=== PATIENT | male | born 1950 | race African-American/Black ===

== ENCOUNTER 2019-08-14 14:14 | Inpatient (IN) | payer OTHER ==
[2019-08-14] MEDS ORDERED: ASPIRIN 81 MG CHEWABLE TABLETS PO ONE (14:58)
[2019-08-14] MEDS ORDERED: ACETAMINOPHEN 500 MG TABLET (FP) PO ONE (14:59)
[2019-08-14] MEDS ORDERED: ACETAMINOPHEN 325 MG TABLET (FP) ONE (15:03)
[2019-08-14] MEDS ORDERED: ASPIRIN 81 MG CHEWABLE TABLETS ONE (15:04)
--- NOTE | 2019-08-14 15:06 | PDOC ---
History of Present Illness - General Chief Complaint: Chest Pain Stated Complaint: CHEST TIGHTNESS Time Seen by Provider: 08/14/19 14:28 - History of Present Illness Initial Comments: 08/14/19 15:06 HPI: 69 y/o M with hx of DM, HTN, HLD presenting with acute onset chest pain that started about 1.5hrs prior to presentation. Patient was lying in bed watching TV when he felt left chest sharp tightness that was nonradiating. Pain was strong for 1minute then dulled. He was able to ambulate to the bathroom following pain and denied any exertional pain. He did not take any meds today. He also reports GREENFIELD for the past 1week with fatigue. He denies any fever, chills, LH, [place], n/v, diaphoresis, change in vision, joint pain, dysuria. He also reports former smoking history PMHx: as noted above ROS: as noted SHx: +former tobacco use; occ alcohol use; no rec drugs Allergies: NKDA ROS: GENERAL/CONSTITUTIONAL: No fever or chills. +gen weakness. HEAD, EYES, EARS, NOSE AND THROAT: No change in vision. No ear pain or discharge. No sore throat. CARDIOVASCULAR: +chest pain and shortness of breath RESPIRATORY: No cough, wheezing, or hemoptysis. GASTROINTESTINAL: No nausea, vomiting, diarrhea or constipation. GENITOURINARY: No dysuria, frequency, or change in urination. MUSCULOSKELETAL: No joint or muscle swelling or pain. No neck or back pain. SKIN: No rash NEUROLOGIC: No headache, vertigo, loss of consciousness, or change in strength/sensation. ENDOCRINE: No increased thirst. No abnormal weight change HEMATOLOGIC/LYMPHATIC: No anemia, easy bleeding, or history of blood clots. ALLERGIC/IMMUNOLOGIC: No hives or skin allergy. PE: GENERAL: Awake, alert, and fully oriented, no acute distress HEAD: No signs of trauma, normocephalic, atraumatic EYES: EOMI, sclera anicteric, conjunctiva clear ENT: Auricles normal inspection, hearing grossly normal, nares patent, oropharynx clear without exudates. Moist mucosa NECK: Normal ROM, no lymphadenopathy LUNGS: No increased work of breathing, symmetrical chest rise, clear to auscultation bilaterally, no wheezes, crackles or rhonchi HEART: tachycardia, regular rhythm, normal S1 and S2, no murmur, peripheral pulses 2+ and equal bilaterally. ABDOMEN: Soft, nondistended, nontender. No guarding, no rebound. No masses. No CVAT MUSCULOSKELETAL: FROM; left hand s/p 3rd digit amputation with skin graft; right foot with 5th metatarsal amputation. NEUROLOGICAL: Cranial nerves II through XII grossly intact. Normal speech, stable gait, no focal sensorimotor deficits SKIN: Warm, Dry, normal turgor, no rashes or lesions noted Past History - Medical History Allergies/Adverse Reactions: Allergies Allergy/AdvReac Type Severity Reaction Status Date / Time No Known Allergies Allergy Verified 03/16/15 19:25 Home Medications: Ambulatory Orders Atorvastatin Calcium 40 mg PO HS 08/14/19 Iron 0 mg PO DAILY 08/14/19 Lisinopril/Hydrochlorothiazide [Lisinopril-Hctz 20-25 mg Tab] 1 each PO DAILY 08/14/19 Multivitamin [Multiple Vitamins] 1 each PO DAILY 08/14/19 Pioglitazone HCl/Metformin HCl [Actoplus Met 15 mg-850 mg Tab] 1 each PO BID 08/14/19 Sitagliptin Phosphate [Januvia] 100 mg PO DAILY 08/14/19 COPD: No Diabetes: Yes - Psycho-Social/Smoking History Smoking History: Former smoker Have you smoked in the past 12 months: No If you are a former smoker, when did you quit?: 6 years ago Information on smoking cessation initiated: No - Substance Abuse Hx (Audit-C & DAST Scrn) How often the patient has a drink containing alcohol: Monthly or less Score: In Men: 4 or > Positive; In Women: 3 or > Positive: 1 Screen Result (Pos requires Nsg. Audit-10AR): Negative *Physical Exam - Vital Signs Last Vital Signs Temp Pulse Resp BP Pulse Ox 98.6 F 77 20 109/62 100 08/14/19 14:20 08/14/19 14:20 08/14/19 14:20 08/14/19 14:20 08/14/19 14:20 Heart Score/ECG Review - History History: Moderately suspicious - Electrocardiogram EKG: Normal - Age Age: >/= 65 - Risk Factors Risk Factors Heart Score: Yes Hx Hypercholesterolemia, Yes Hx Hypertension, Yes Hx Diabetes, Yes Smoking History Based on the list above the patient has:: >/=3 risk factors or Hx atherosclerotic disease - Troponin Troponin: </= normal limit - Score Heart Score - Total: 5 ED Treatment Course - LABORATORY CBC & Chemistry Diagram: 08/14/19 14:59 08/14/19 14:59 - RADIOLOGY Radiology Studies Ordered: Category Date Time Status CXRPORT [CHEST X-RAY PORTABLE*] [RAD] Stat Radiology 08/14/19 14:48 Ordered Medical Decision Making - Medical Decision Making 08/14/19 16:30 69 y/o M with hx of DM, HTN, HLD presenting with acute onset nonexertional chest tightness that started about 1.5hrs prior to presentation in the setting of GREENFIELD and fatigue x1week. HR 102, AF, O2 100%. PE unremarkable. DDx includes ACS, arrythmia, pna -cbc, cmp, coags, card prof, ekg, cxr -ASA, tylenol 08/14/19 16:34 Cr 2.5 will send ua, ucr, cara ivf HEART score 5 will admit for fawad and acs r/o 08/14/19 16:37 bmp hemolyzed; will rpt and send 2nd trop Discharge - Discharge Information Problems reviewed: Yes Clinical Impression/Diagnosis: FAWAD (acute kidney injury), Chest pain, GREENFIELD (dyspnea on exertion) Condition: Stable - Admission Yes - Follow up/Referral Referrals: Elia Veronica MD [Primary Care Provider] - - Patient Discharge Instructions - Post Discharge Activity
[2019-08-14 15:11] LABS: BASO % 0.8 % (0-2.0); EOS % 1.5 % (0-4.5); HEMATOCRIT 39.6 % (35.4-49); HEMOGLOBIN 12.8 GM/dL (11.7-16.9); LYMPH % 22.7 % (8-40); MCH 32.4 pg (25.7-33.7); MCHC 32.2 g/dl (32.0-35.9); MEAN CELL VOLUME 100.5 fl (80-96); MEAN PLT VOLUME 8.3 fl (7.5-11.1); MONO % 7.4 % (3.8-10.2); NEUT % 67.6 % (42.8-82.8); PLATELET COUNT 256 K/MM3 (134-434); RBC 3.94 M/mm3 (4.00-5.60); RDW 13.4 % (11.9-15.9); WHITE BLOOD COUNT 6.7 K/mm3 (4.0-10.0)
[2019-08-14 15:20] LABS: INR 0.95 (0.83-1.09); PROTHROMBIN TIME (PATIENT) 11.2 SEC (9.7-13.0)
[2019-08-14 15:22] LABS: ACTIVATED PTT 27.9 SECONDS (25.2-36.5)
[2019-08-14 15:32] LABS: ALBUMIN 3.9 g/dl (3.4-5.0); ALK PHOS 79 U/L (45-117); ANION GAP 10 MMOL/L (8-16); BILIRUBIN,TOTAL 0.6 mg/dL (0.2-1); BLOOD UREA NITROGEN 34.7 mg/dL (7-18); CALCIUM 9.1 mg/dL (8.5-10.1); CHLORIDE 105 mmol/L (98-107); CO2 18 mmol/L (21-32); CREATININE 2.5 mg/dL (0.55-1.3); GLUCOSE,RANDOM 144 mg/dL (74-106); MAGNESIUM 2.4 mg/dL (1.8-2.4); PHOSPHOROUS 4.2 mg/dL (2.5-4.9); POTASSIUM 5.8 mmol/L (3.5-5.1); SGOT/AST 36 U/L (15-37); SGPT/ALT 26 U/L (13-61); SODIUM 134 mmol/L (136-145); TOT PROT 7.2 g/dl (6.4-8.2)
--- NOTE | 2019-08-14 15:33 | PDOC ---
Attending Attestation - Resident Resident Name: Jace Haas - ED Attending Attestation I have performed the following: I have examined & evaluated the patient, The case was reviewed & discussed with the resident, I agree w/resident's findings & plan - HPI HPI: 08/14/19 17:56 69 y/o M with hx of DM, HTN, HLD presenting with acute onset chest pain that started about 1.5hrs prior to presentation. Patient was lying in bed watching TV when he felt left chest sharp tightness that was nonradiating. Pain was strong for 1minute then dulled. He was able to ambulate to the bathroom following pain and denied any exertional pain. He did not take any meds today. He also reports [place] for the past 1week with fatigue. He denies any fever, chills, LH, [place], n/v, diaphoresis, change in vision, joint pain, dysuria. He also reports former smoking history - Physicial Exam PE: 08/14/19 15:32 Agree with the resident's HPI and PE as documented in the electronic medical record. NAD, well appearing, EOMI, PERRL, nl conjunctiva, anicteric; neck supple. lungs clear, RRR, abdomen soft nontender. No rebound, no guarding. Back nontender. WILSON x4, no focal neuro deficits. No peripheral edema. normal color for ethnicity, WWP. partial amputation healed over left great toe right pinky toe amputation, well healed left hand dorsal aspect with healed graft. middle finger amputated, healed. 08/14/19 16:20 - Medical Decision Making 08/14/19 15:32 Vital Signs Temp Pulse Resp BP Pulse Ox 98.6 F 77 20 109/62 100 08/14/19 14:20 08/14/19 14:20 08/14/19 14:20 08/14/19 14:20 08/14/19 14:20 DDx chest pain: ACS, coronary vasospasm, NSTEMI, arrhythmia, unstable angina, PE, dissection, PUD, esophageal spasm, GERD, gastritis, costochondritis, pneum onia, pleurisy, pericarditis/myocarditis. dehydration, electrolyte/metabolic derangements. Considered but clinically doubt based on HPI and PE: Low suspicion for pulmonary embolism or dissection. sinus tachycardia at 107 bpm, normal intervals, narrow qrs, normal axis, no ST elevations or deviation. Chest pain HEART score 5 which denotes Moderate risk and probability for ACS, risk of 14-16% of MACE at 4-6 wks Given risk factors including comorbidities, gender, typical history and clinical sx and tobacco use. cxr is clear,no acute pathology initial trop is neg needs serials/EKG and tele monitor ASA given tylenol for pain IVF hydration, labs and lytes with mild FAWAD Cr 2.5, baseline is normal from 2016; mild hyper-K, noted to be partially hemolyzed. no EKG changes to warrant treatment. repeat bmp; normalized K; Cr 2.4 urine lytes to workup new FAWAD. hydrating in meantime and trend cr/lytes. no active cp, sob or respiratory sx covid 19 swab Plan for admit observation for chest pain, r/o ACS, possible Stress testing, to r/o ischemia, serial trops and EKG/tele monitoring. ASA administered, pain controlled, discussion with patient and family at bedside, made aware of impression and plan, questions answered. 08/14/19 16:33 08/14/19 17:56 Heart Score/ECG Review - History History: Moderately suspicious - Electrocardiogram EKG: Normal - Age Age: >/= 65 - Risk Factors Risk Factors Heart Score: Yes Hx Hypercholesterolemia, Yes Hx Hypertension, Yes Hx Diabetes, Yes Smoking History Based on the list above the patient has:: >/=3 risk factors or Hx atherosclerotic disease - Troponin Troponin: </= normal limit - Score Heart Score - Total: 5 #1 ECG reviewed & interpreted by me at: 14:05 General ECG Interpretation: Sinus Rhythm, Normal Rate Compared to previous ECG there are: No significant change 08/14/19 15:32 sinus tachycardia at 107 bpm, normal intervals, narrow qrs, normal axis, no ST elevations or deviation. 08/14/19 15:53 Discharge - Discharge Information Problems reviewed: Yes Clinical Impression/Diagnosis: FAWAD (acute kidney injury), Chest pain, [place]EN[place] (dyspnea on exertion) Condition: Stable - Admission Yes - Follow up/Referral Referrals: Elia Veronica MD [Primary Care Provider] - - Patient Discharge Instructions - Post Discharge Activity
[2019-08-14] MEDS ORDERED: SODIUM CHLORIDE 1,000 ML IV STA (15:51)
[2019-08-14 16:54] LABS: URINE APPEARANCE CLEAR; URINE BILIRUBIN NEGATIVE (NEGATIVE); URINE COLOR YELLOW; URINE GLUCOSE (UA) NEGATIVE (NEGATIVE); URINE KETONE TRACE (NEGATIVE); URINE LEUK ESTERASE NEGATIVE (NEGATIVE); URINE NITRITE NEGATIVE (NEGATIVE); URINE PROTEIN NEGATIVE (NEGATIVE)
[2019-08-14 17:22] LABS: ANION GAP 11 MMOL/L (8-16); BLOOD UREA NITROGEN 33.6 mg/dL (7-18); CALCIUM 8.9 mg/dL (8.5-10.1); CHLORIDE 105 mmol/L (98-107); CO2 19 mmol/L (21-32); CREATININE 2.4 mg/dL (0.55-1.3); GLUCOSE,RANDOM 137 mg/dL (74-106); POTASSIUM 4.9 mmol/L (3.5-5.1); SODIUM 135 mmol/L (136-145)
--- NOTE | 2019-08-14 19:15 | HP ---
Admitting History and Physical - Admission Chief Complaint: Chest pain History of Present Illness: 69M with history of HTN HLD DM CKD PVD s/p multiple amputation of right 5th toe left toe and left middle finger presents to the hospital with acute onset chest pain while watching TV today. It was sudden onset and offset and didnt radiate anywhere. No diaphoresis. Patient thinks it was gas pain. Poor historian and at bedside gives most of history history. Patient does not know about his renal failure history but his documents from [facility] on july 11 and august 08 show a diagnosis of renal insufficiency. I asked to make an account for the [facility] portal so we can see his lab history. states he is compliant with meds. Denies nausea vomiting fever chills SOB. Denies multiple sex partners or IVDA history (discussed alone). Patient also drinks alcohol everyday states he drinks a few beers a day. trop negative. History Source: Significant Other, Medical Record Limitations to Obtaining History: Dementia (early onset), Poor Historian - Past Medical History [employer]GMENT[employer]: Yes: Dementia Cardiovascular: Yes: HTN, Hyperlipdemia Endocrine: Yes: Diabetes Mellitus Additional Past Medical History: peripheral vascular disease - Past Surgical History Additional Past Surgical History: multiple digital amputations - Smoking History Smoking history: Former smoker Have you smoked in the past 12 months: No If you are a former smoker, when did you quit?: 6 years ago - Alcohol/Substance Use Hx Alcohol Use: No Home Medications - Allergies Allergies/Adverse Reactions: Allergies Allergy/AdvReac Type Severity Reaction Status Date / Time No Known Allergies Allergy Verified 03/16/15 19:25 - Home Medications Home Medications: Ambulatory Orders Atorvastatin Calcium 40 mg PO HS 08/14/19 Iron 0 mg PO DAILY 08/14/19 Lisinopril/Hydrochlorothiazide [Lisinopril-Hctz 20-25 mg Tab] 1 each PO DAILY 08/14/19 Multivitamin [Multiple Vitamins] 1 each PO DAILY 08/14/19 Pioglitazone HCl/Metformin HCl [Actoplus Met 15 mg-850 mg Tab] 1 each PO BID 08/14/19 Sitagliptin Phosphate [Januvia] 100 mg PO DAILY 08/14/19 Family Medical History Family History: Unable to Obtain (patient dosnt know and neither does stated it was too long ago to remember) Review of Systems - Review of Systems Constitutional: denies: Diaphoresis, Lethargy, Loss of Appetite, Malaise, Night Sweats, Unintentional Wgt. Loss, Weakness Eyes: reports: No Symptoms HENT: reports: No Symptoms Neck: reports: No Symptoms Cardiovascular: reports: Chest Pain. denies: Edema, Palpitations, Shortness of Breath Respiratory: reports: No Symptoms Gastrointestinal: reports: No Symptoms Genitourinary: reports: No Symptoms Breasts: reports: No Symptoms Reported Musculoskeletal: reports: No Symptoms Integumentary: reports: No Symptoms Neurological: reports: No Symptoms Endocrine: reports: No Symptoms Hematology/Lymphatic: reports: No Symptoms Psychiatric: reports: Other (Alcohol use disorder) Physical Examination Vital Signs: Vital Signs Temperature 98.6 F 08/14/19 14:20 Pulse Rate 89 08/14/19 18:44 Respiratory Rate 17 08/14/19 18:44 Blood Pressure 117/59 L 08/14/19 18:44 O2 Sat by Pulse Oximetry (%) 99 08/14/19 18:44 Constitutional: Yes: No Distress, Calm Eyes: Yes: EOM Intact HENT: Yes: Atraumatic Neck: Yes: Supple Cardiovascular: Yes: Regular Rate and Rhythm Respiratory: Yes: CTA Bilaterally Gastrointestinal: Yes: Soft Extremities: Yes: Amputation (one toe on each left and right foot and left middle finger) Edema: No Peripheral Pulses WNL: No Peripheral Pulses: Left Doralis Pedis: 0, Right Dorsalis Pedis: 0 Neurological: Yes: Alert, Oriented ...Motor Strength: WNL Labs: CBC, BMP 08/14/19 14:59 08/14/19 16:30 Imaging - Results Chest X-ray: Image Reviewed (clear) EKG: Image Reviewed Assessment/Plan 69M with history of HTN HLD DM PVD and alcohol abuse presents with chest pain. Problem List: Chest pain r/o ACS. High heart score. has history of CAD equivalents. DM HTN HLD Alcohol abuse PVD/PAD Plan: Admit to telemtry for monitoring trend troponin statin aspirin cardiology consult nephrology consult ISS DVT PPx monitor for signs or symptoms of withdrawals to make [employer] portal account to compare most recent labs from last week and 3 months ago. Visit type - Emergency Visit Emergency Visit: Yes ED Registration Date: 08/14/19 Care time: The patient presented to the Emergency Department on the above date and was hospitalized for further evaluation of their emergent condition. - New Patient This patient is new to me today: Yes Date on this admission: 08/14/19 - Critical Care Critical Care patient: No
[2019-08-14 19:33] VITALS: BMI 25.7
[2019-08-14] MEDS ORDERED: ATORVASTATIN CA 40 MG TABLET (FP) PO SCH (22:00)
[2019-08-14] MEDS ORDERED: ATORVASTATIN CA 40 MG TABLET (FP) ONE (22:12)
[2019-08-14] MEDS ORDERED: HEPARIN NA (PORCINE) 5,000 UNITS/ML 1ML VIAL ONE (22:13)
[2019-08-14] MEDS: HEPARIN NA (PORCINE) 5,000 UNITS/ML 1ML VIAL SQ SCH (22:18)
[2019-08-15] MEDS ORDERED: NYSTATIN 500,000 UNITS/5 ML SUSPENSION PO SCH
[2019-08-15] MEDS ORDERED: INSULIN SLIDING SCALE (NOVOLOG) 1 VIAL SQ SCH (07:00)
[2019-08-15 07:56] LABS: BASO % 0.5 % (0-2.0); EOS % 1.3 % (0-4.5); HEMATOCRIT 37.5 % (35.4-49); HEMOGLOBIN 12.3 GM/dL (11.7-16.9); LYMPH % 33.6 % (8-40); MCH 32.7 pg (25.7-33.7); MCHC 32.7 g/dl (32.0-35.9); MEAN CELL VOLUME 99.9 fl (80-96); MEAN PLT VOLUME 8.7 fl (7.5-11.1); MONO % 10.9 % (3.8-10.2); NEUT % 53.7 % (42.8-82.8); PLATELET COUNT 262 K/MM3 (134-434); RBC 3.75 M/mm3 (4.00-5.60); RDW 13.5 % (11.9-15.9); WHITE BLOOD COUNT 5.6 K/mm3 (4.0-10.0)
[2019-08-15 08:11] LABS: ALBUMIN 4.1 g/dl (3.4-5.0); ALK PHOS 79 U/L (45-117); ANION GAP 13 MMOL/L (8-16); BILIRUBIN,TOTAL 0.6 mg/dL (0.2-1); BLOOD UREA NITROGEN 32.5 mg/dL (7-18); CALCIUM 9.7 mg/dL (8.5-10.1); CHLORIDE 104 mmol/L (98-107); CHOLESTEROL 140 mg/dL (50-200); CO2 19 mmol/L (21-32); CREATININE 2.1 mg/dL (0.55-1.3); GLUCOSE,RANDOM 136 mg/dL (74-106); HDL CHOLESTEROL 67 mg/dL (40-60); LDL CHOLESTEROL (ONLY SJRH) 53 mg/dL (5-100); MAGNESIUM 2.4 mg/dL (1.8-2.4); PHOSPHOROUS 3.7 mg/dL (2.5-4.9); POTASSIUM 4.8 mmol/L (3.5-5.1); SGOT/AST 22 U/L (15-37); SGPT/ALT 24 U/L (13-61); SODIUM 136 mmol/L (136-145); TOT PROT 7.2 g/dl (6.4-8.2); TRIGLYCERIDES 110 mg/dL (0-150)
--- NOTE | 2019-08-15 08:14 | PN ---
Progress Note, Physician History of Present Illness: 69M with history of HTN HLD DM CKD PVD s/p multiple amputation of right 5th toe left toe and left middle finger presents to the hospital with acute onset chest pain while watching TV - Current Medication List Current Medications: Active Medications Aspirin (Asa -) 81 mg PO DAILY [facility] Atorvastatin Calcium (Lipitor -) 40 mg PO HS [facility] Last Admin: 08/14/19 22:18 Dose: 40 mg Documented by: Heparin Sodium (Porcine) (Heparin -) 5,000 unit SQ TID [facility] Last Admin: 08/14/19 22:18 Dose: 5,000 unit Documented by: Insulin Aspart (Novolog Vial Sliding Scale -) 1 vial SQ TIDAC [facility]; Protocol Nystatin (Nystatin Oral Suspension -) 500,000 units PO Q6HPO [facility] Last Admin: 08/15/19 00:50 Dose: 500,000 units Documented by: - Objective Vital Signs: Vital Signs Temperature 98.0 F 08/15/19 06:05 Pulse Rate 74 08/15/19 06:05 Respiratory Rate 15 08/15/19 06:05 Blood Pressure 150/70 08/15/19 06:05 O2 Sat by Pulse Oximetry (%) 97 08/15/19 06:05 Labs: CBC, BMP 08/15/19 06:45 INR, PTT INR 0.95 (0.83-1.09) 08/14/19 14:59 - ....Imaging Chest X-ray: Image Reviewed (CXRL no effusion/infiltrates) Problem List - Problems (1) Prophylactic measure Code(s): Z29.9 - ENCOUNTER FOR PROPHYLACTIC MEASURES, UNSPECIFIED (2) HTN (hypertension) Code(s): I10 - ESSENTIAL (PRIMARY) HYPERTENSION (3) HLD (hyperlipidemia) Code(s): E78.5 - HYPERLIPIDEMIA, UNSPECIFIED (4) PVD (peripheral vascular disease) Code(s): I73.9 - PERIPHERAL VASCULAR DISEASE, UNSPECIFIED (5) Person under investigation for COVID-19 Code(s): Z20.828 - CONTACT W AND EXPOSURE TO OTH VIRAL COMMUNICABLE DISEASES (6) ETOH abuse Code(s): F10.10 - ALCOHOL ABUSE, UNCOMPLICATED (7) Chest pain Code(s): R07.9 - CHEST PAIN, UNSPECIFIED (8) Diabetes Code(s): E11.9 - TYPE 2 DIABETES MELLITUS WITHOUT COMPLICATIONS
[2019-08-15] MEDS: HEPARIN NA (PORCINE) 5,000 UNITS/ML 1ML VIAL SQ SCH (08:43)
--- NOTE | 2019-08-15 09:30 | CON.CARD ---
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 He came into ED with complaints of mid to left sternal chest discomfort while watching TV. He denies radiation of pain and denies shortness of breath or palpitations. He denies paroxysmal nocturnal dyspnea or orthopnea. He denies fever or chills. He denies nausea, vomiting, diarrhea or abdominal pain. He denies headache or lightheadedness. 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: Yes: Dementia Cardio/Vascular: Yes: HTN, Hyperlipdemia Endocrine: Yes: Diabetes Mellitus - Past Surgical History Additional Surgical History: Left middle finger amputation, right 5th toe amputation - Alcohol/Substance Use Hx Alcohol Use: No - Smoking History Smoking history: Former smoker Have you smoked in the past 12 months: No If you are a former smoker, when did you quit?: 6 years ago Home Medications - Allergies Allergies/Adverse Reactions: Allergies Allergy/AdvReac Type Severity Reaction Status Date / Time No Known Allergies Allergy Verified 03/16/15 19:25 - Home Medications Home Medications: Ambulatory Orders Atorvastatin Calcium 40 mg PO HS 08/14/19 Iron 0 mg PO DAILY 08/14/19 Lisinopril/Hydrochlorothiazide [Lisinopril-Hctz 20-25 mg Tab] 1 each PO DAILY 08/14/19 Multivitamin [Multiple Vitamins] 1 each PO DAILY 08/14/19 Pioglitazone HCl/Metformin HCl [Actoplus Met 15 mg-850 mg Tab] 1 each PO BID 08/14/19 Sitagliptin Phosphate [Januvia] 100 mg PO DAILY 08/14/19 Family Medical History Family History: Denies Review of Systems - Review of Systems Constitutional: denies: Chills, Fever Cardiovascular: reports: Chest Pain. denies: Palpitations, Shortness of Breath Respiratory: denies: Cough, Hemoptysis, Orthopnea, PND, SOB, SOB on Exertion, Wheezing Gastrointestinal: denies: Abdominal Pain, Constipation, Diarrhea, Melena, Nausea, Rectal Bleeding, Vomiting Musculoskeletal: denies: Back Pain, Joint Pain Neurological: denies: Dizziness, Headache, Seizure, Syncope Vital Signs: Vital Signs Temperature 98.0 F 08/15/19 06:05 Pulse Rate 74 08/15/19 06:05 Respiratory Rate 15 08/15/19 06:05 Blood Pressure 150/70 08/15/19 06:05 O2 Sat by Pulse Oximetry (%) 97 08/15/19 06:05 Eyes: Yes: PERRL HENT: Yes: Atraumatic Neck: Yes: Supple Respiratory: Yes: CTA Bilaterally Gastrointestinal: Yes: Normal Bowel Sounds, Soft. No: Tenderness Cardiovascular: Yes: Regular Rate and Rhythm JVD: No PMI: Non-Displaced Heart Sounds: Yes: S1, S2. No: Gallop Murmur: No: Systolic Murmur Edema: No - Other Data Labs, Other Data: CBC, BMP 08/15/19 06:45 08/15/19 06:45 INR, PTT INR 0.95 (0.83-1.09) 08/14/19 14:59 Troponin, BNP 08/14/19 08/14/19 08/14/19 14:59 16:30 23:00 Troponin I < 0.02 < 0.02 < 0.02 Laboratory Results - last 24 hr 08/14/19 08/14/19 08/14/19 14:59 14:59 14:59 WBC 6.7 RBC 3.94 L Hgb 12.8 Hct 39.6 MCV 100.5 H MCH 32.4 MCHC 32.2 RDW 13.4 Plt Count 256 MPV 8.3 Absolute Neuts (auto) 4.5 Neutrophils % 67.6 Lymphocytes % 22.7 Monocytes % 7.4 Eosinophils % 1.5 D Basophils % 0.8 Nucleated RBC % 0 PT with INR 11.20 INR 0.95 PTT (Actin FS) 27.9 Sodium 134 L Potassium 5.8 H Chloride 105 Carbon Dioxide 18 L Anion Gap 10 BUN 34.7 H Creatinine 2.5 H Est GFR (CKD-EPI)AfAm 29.68 Est GFR (CKD-EPI)NonAf 25.61 Random Glucose 144 H Hemoglobin A1c % Calcium 9.1 Phosphorus 4.2 Magnesium 2.4 Total Bilirubin 0.6 AST 36 ALT 26 Alkaline Phosphatase 79 Creatine Kinase 138 Troponin I < 0.02 Total Protein 7.2 Albumin 3.9 Triglycerides Cholesterol Total LDL Cholesterol HDL Cholesterol TSH 1.50 Urine Color Urine Appearance Urine pH Ur Specific [place] Urine Protein Urine Glucose (UA) Urine Ketones Urine Blood Urine Nitrite Urine Bilirubin Urine Urobilinogen Ur Leukocyte Esterase Ur Random Creatinine Ur Random Sodium HIV Ag/Ab Combo Qual 08/14/19 08/14/19 08/14/19 16:30 16:30 16:30 WBC RBC Hgb Hct MCV MCH MCHC RDW Plt Count MPV Absolute Neuts (auto) Neutrophils % Lymphocytes % Monocytes % Eosinophils % Basophils % Nucleated RBC % PT with INR INR PTT (Actin FS) Sodium 135 L Potassium 4.9 Chloride 105 Carbon Dioxide 19 L Anion Gap 11 BUN 33.6 H Creatinine 2.4 H Est GFR (CKD-EPI)AfAm 31.18 Est GFR (CKD-EPI)NonAf 26.90 Random Glucose 137 H Hemoglobin A1c % Calcium 8.9 Phosphorus Magnesium Total Bilirubin AST ALT Alkaline Phosphatase Creatine Kinase Troponin I < 0.02 Total Protein Albumin Triglycerides Cholesterol Total LDL Cholesterol HDL Cholesterol TSH Urine Color Yellow Urine Appearance Clear Urine pH 5.0 Ur Specific [place] 1.017 Urine Protein Negative Urine Glucose (UA) Negative Urine Ketones Trace H Urine Blood Negative Urine Nitrite Negative Urine Bilirubin Negative Urine Urobilinogen 1.0 Ur Leukocyte Esterase Negative Ur Random Creatinine 361.0 H Ur Random Sodium 41 HIV Ag/Ab Combo Qual 08/14/19 08/14/19 08/15/19 23:00 23:00 06:45 WBC 5.6 RBC 3.75 L Hgb 12.3 Hct 37.5 MCV 99.9 H MCH 32.7 MCHC 32.7 RDW 13.5 Plt Count 262 MPV 8.7 Absolute Neuts (auto) 3.0 Neutrophils % 53.7 D Lymphocytes % 33.6 D Monocytes % 10.9 H Eosinophils % 1.3 Basophils % 0.5 Nucleated RBC % 0 PT with INR INR PTT (Actin FS) Sodium Potassium Chloride Carbon Dioxide Anion Gap BUN Creatinine Est GFR (CKD-EPI)AfAm Est GFR (CKD-EPI)NonAf Random Glucose Hemoglobin A1c % Calcium Phosphorus Magnesium Total Bilirubin AST ALT Alkaline Phosphatase Creatine Kinase 43 Troponin I < 0.02 Total Protein Albumin Triglycerides Cholesterol Total LDL Cholesterol HDL Cholesterol TSH Urine Color Urine Appearance Urine pH Ur Specific [place] Urine Protein Urine Glucose (UA) Urine Ketones Urine Blood Urine Nitrite Urine Bilirubin Urine Urobilinogen Ur Leukocyte Esterase Ur Random Creatinine Ur Random Sodium HIV Ag/Ab Combo Qual Negative 08/15/19 08/15/19 06:45 06:45 WBC RBC Hgb Hct MCV MCH MCHC RDW Plt Count MPV Absolute Neuts (auto) Neutrophils % Lymphocytes % Monocytes % Eosinophils % Basophils % Nucleated RBC % PT with INR INR PTT (Actin FS) Sodium 136 Potassium 4.8 Chloride 104 Carbon Dioxide 19 L Anion Gap 13 BUN 32.5 H Creatinine 2.1 H Est GFR (CKD-EPI)AfAm 36.65 Est GFR (CKD-EPI)NonAf 31.62 Random Glucose 136 H Hemoglobin A1c % 7.8 H Calcium 9.7 Phosphorus 3.7 Magnesium 2.4 Total Bilirubin 0.6 AST 22 ALT 24 Alkaline Phosphatase 79 Creatine Kinase 53 Troponin I < 0.02 Total Protein 7.2 Albumin 4.1 Triglycerides 110 Cholesterol 140 Total LDL Cholesterol 53 HDL Cholesterol 67 H TSH Urine Color Urine Appearance Urine pH Ur Specific [place] Urine Protein Urine Glucose (UA) Urine Ketones Urine Blood Urine Nitrite Urine Bilirubin Urine Urobilinogen Ur Leukocyte Esterase Ur Random Creatinine Ur Random Sodium HIV Ag/Ab Combo Qual Sinus tachycardia with low voltage Imaging - Results Chest X-ray: Report Reviewed (Unremarkable) EKG: Report Reviewed Problem List - Problems (1) FAWAD (acute kidney injury) Code(s): N17.9 - ACUTE KIDNEY FAILURE, UNSPECIFIED (2) Chest pain Code(s): R07.9 - CHEST PAIN, UNSPECIFIED (3) HLD (hyperlipidemia) Code(s): E78.5 - HYPERLIPIDEMIA, UNSPECIFIED (4) HTN (hypertension) Code(s): I10 - ESSENTIAL (PRIMARY) HYPERTENSION (5) PVD (peripheral vascular disease) Code(s): I73.9 - PERIPHERAL VASCULAR DISEASE, UNSPECIFIED Assessment/Plan 1. Chest pain syndrome 2. HTN 3. Type 2 DM 4. Hypercholesterolemia 5. PAD 6. Acute on chronic kidney injury with elevated Cr now > 2 (last Cr in 2016 was 1.3) PLAN: 1. Hold ACEI in view of renal function. If need to treat HTN, may use Amlodipine in the interim 2. Atorvastatin 40 mg QHS. Continue ASA 81 mg QD 3. Echocardiography to assess LV/RV and valvular function 4. Renal input to follow and monitor renal function Further plans are to follow. As cardiac enzymes are negative more than 2 sets, he can be admitted to floor care Sameer Sanchez MD
--- NOTE | 2019-08-15 09:33 | EKG ---
Test Reason : Blood Pressure : / mmHG Vent. Rate : 107 BPM Atrial Rate : 107 BPM P-R Int : 186 ms QRS Dur : 078 ms QT Int : 330 ms P-R-T Axes : 063 007 052 degrees QTc Int : 440 ms SINUS TACHYCARDIA LOW VOLTAGE QRS BORDERLINE ECG WHEN COMPARED WITH ECG OF 16-MAR-2015 22:48, NO SIGNIFICANT CHANGE WAS FOUND Confirmed by ANGELA ULOLA MD ([id number]) on 08/15/2019 9:33:25 AM Referred By: Confirmed By:ANGELA ULLOA MD
[2019-08-15] MEDS ORDERED: HYDROCHLOROTHIAZIDE 25 MG TABLET (FP) PO SCH (10:00)
[2019-08-15] MEDS ORDERED: LISINOPRIL 20 MG TABLET (FP) PO SCH (10:00)
[2019-08-15] MEDS ORDERED: PATIENT'S OWN MEDICATION (NON-FORMULARY) (Lisinopril/Hydrochlorothiazide [Lisinopril-Hctz PO SCH (10:00)
[2019-08-15] MEDS ORDERED: MULTIVITAMINS (DAILY MVI) TABLET (FP) PO SCH (10:00)
[2019-08-15] MEDS ORDERED: ASPIRIN 81 MG CHEWABLE TABLETS PO SCH (10:00)
[2019-08-15 10:21] VITALS: BP 155/97; PULSE 98; TEMP 98.4
--- NOTE | 2019-08-15 11:18 | DS ---
Physical Exam: SUBJECTIVE: Patient seen and refused examination. Demanding to sign out AMA. OBJECTIVE: Vital Signs Period Temp Pulse Resp BP Sys/Stovall Pulse Ox Last 24 Hr 98.0 F-98.7 F 74-98 15-20 109-155/53-97 97-100 PHYSICAL EXAM GENERAL: The patient is awake, alert, and fully oriented, in no acute distress. HEAD: Normal with no signs of trauma. EYES: PERRL, extraocular movements intact, sclera anicteric, conjunctiva clear. ENT: Ears normal, nares patent, oropharynx clear without exudates, moist mucous membranes. NECK: Trachea midline, full range of motion, supple. LUNGS: Breath sounds equal, clear to auscultation bilaterally, no wheezes, no crackles, no accessory muscle use. HEART: Regular rate and rhythm, S1, S2 without murmur, rub or gallop. ABDOMEN: Soft, nontender, nondistended, normoactive bowel sounds, no guarding, no rebound, no hepatosplenomegaly, no masses. EXTREMITIES: 2+ pulses, warm, well-perfused, no edema. NEUROLOGICAL: Cranial nerves II through XII grossly intact. Normal speech, gait not observed. PSYCH: Normal mood, normal affect. SKIN: Warm, dry, normal turgor, no rashes or lesions noted. LABS Laboratory Results - last 24 hr 08/14/19 08/14/19 08/14/19 14:59 14:59 14:59 WBC 6.7 RBC 3.94 L Hgb 12.8 Hct 39.6 MCV 100.5 H MCH 32.4 MCHC 32.2 RDW 13.4 Plt Count 256 MPV 8.3 Absolute Neuts (auto) 4.5 Neutrophils % 67.6 Lymphocytes % 22.7 Monocytes % 7.4 Eosinophils % 1.5 D Basophils % 0.8 Nucleated RBC % 0 PT with INR 11.20 INR 0.95 PTT (Actin FS) 27.9 Sodium 134 L Potassium 5.8 H Chloride 105 Carbon Dioxide 18 L Anion Gap 10 BUN 34.7 H Creatinine 2.5 H Est GFR (CKD-EPI)AfAm 29.68 Est GFR (CKD-EPI)NonAf 25.61 Random Glucose 144 H Hemoglobin A1c % Calcium 9.1 Phosphorus 4.2 Magnesium 2.4 Total Bilirubin 0.6 AST 36 ALT 26 Alkaline Phosphatase 79 Creatine Kinase 138 Troponin I < 0.02 Total Protein 7.2 Albumin 3.9 Triglycerides Cholesterol Total LDL Cholesterol HDL Cholesterol TSH 1.50 Urine Color Urine Appearance Urine pH Ur Specific [place] Urine Protein Urine Glucose (UA) Urine Ketones Urine Blood Urine Nitrite Urine Bilirubin Urine Urobilinogen Ur Leukocyte Esterase Ur Random Creatinine Ur Random Sodium HIV Ag/Ab Combo Qual 08/14/19 08/14/19 08/14/19 16:30 16:30 16:30 WBC RBC Hgb Hct MCV MCH MCHC RDW Plt Count MPV Absolute Neuts (auto) Neutrophils % Lymphocytes % Monocytes % Eosinophils % Basophils % Nucleated RBC % PT with INR INR PTT (Actin FS) Sodium 135 L Potassium 4.9 Chloride 105 Carbon Dioxide 19 L Anion Gap 11 BUN 33.6 H Creatinine 2.4 H Est GFR (CKD-EPI)AfAm 31.18 Est GFR (CKD-EPI)NonAf 26.90 Random Glucose 137 H Hemoglobin A1c % Calcium 8.9 Phosphorus Magnesium Total Bilirubin AST ALT Alkaline Phosphatase Creatine Kinase Troponin I < 0.02 Total Protein Albumin Triglycerides Cholesterol Total LDL Cholesterol HDL Cholesterol TSH Urine Color Yellow Urine Appearance Clear Urine pH 5.0 Ur Specific [place] 1.017 Urine Protein Negative Urine Glucose (UA) Negative Urine Ketones Trace H Urine Blood Negative Urine Nitrite Negative Urine Bilirubin Negative Urine Urobilinogen 1.0 Ur Leukocyte Esterase Negative Ur Random Creatinine 361.0 H Ur Random Sodium 41 HIV Ag/Ab Combo Qual 08/14/19 08/14/19 08/15/19 23:00 23:00 06:45 WBC 5.6 RBC 3.75 L Hgb 12.3 Hct 37.5 MCV 99.9 H MCH 32.7 MCHC 32.7 RDW 13.5 Plt Count 262 MPV 8.7 Absolute Neuts (auto) 3.0 Neutrophils % 53.7 D Lymphocytes % 33.6 D Monocytes % 10.9 H Eosinophils % 1.3 Basophils % 0.5 Nucleated RBC % 0 PT with INR INR PTT (Actin FS) Sodium Potassium Chloride Carbon Dioxide Anion Gap BUN Creatinine Est GFR (CKD-EPI)AfAm Est GFR (CKD-EPI)NonAf Random Glucose Hemoglobin A1c % Calcium Phosphorus Magnesium Total Bilirubin AST ALT Alkaline Phosphatase Creatine Kinase 43 Troponin I < 0.02 Total Protein Albumin Triglycerides Cholesterol Total LDL Cholesterol HDL Cholesterol TSH Urine Color Urine Appearance Urine pH Ur Specific [place] Urine Protein Urine Glucose (UA) Urine Ketones Urine Blood Urine Nitrite Urine Bilirubin Urine Urobilinogen Ur Leukocyte Esterase Ur Random Creatinine Ur Random Sodium HIV Ag/Ab Combo Qual Negative 08/15/19 08/15/19 06:45 06:45 WBC RBC Hgb Hct MCV MCH MCHC RDW Plt Count MPV Absolute Neuts (auto) Neutrophils % Lymphocytes % Monocytes % Eosinophils % Basophils % Nucleated RBC % PT with INR INR PTT (Actin FS) Sodium 136 Potassium 4.8 Chloride 104 Carbon Dioxide 19 L Anion Gap 13 BUN 32.5 H Creatinine 2.1 H Est GFR (CKD-EPI)AfAm 36.65 Est GFR (CKD-EPI)NonAf 31.62 Random Glucose 136 H Hemoglobin A1c % 7.8 H Calcium 9.7 Phosphorus 3.7 Magnesium 2.4 Total Bilirubin 0.6 AST 22 ALT 24 Alkaline Phosphatase 79 Creatine Kinase 53 Troponin I < 0.02 Total Protein 7.2 Albumin 4.1 Triglycerides 110 Cholesterol 140 Total LDL Cholesterol 53 HDL Cholesterol 67 H TSH Urine Color Urine Appearance Urine pH Ur Specific [place] Urine Protein Urine Glucose (UA) Urine Ketones Urine Blood Urine Nitrite Urine Bilirubin Urine Urobilinogen Ur Leukocyte Esterase Ur Random Creatinine Ur Random Sodium HIV Ag/Ab Combo Qual HOSPITAL COURSE: Date of Admission:08/14/19 Date of Discharge: 08/15/19 Patient seen and refused examination. Demanding to sign out AMA. Explained risk of leaving AMA prior to further testing for etiology of chest pain including ACS, CVA, and or . Stated pain was related to gas and do not want further testing. AMA form given and signed. Minutes to complete discharge: 30 Discharge Summary Problems reviewed: Yes Reason For Visit: CHEST TIGHTNESS/ACUTE KIDNEY INJ/DYSPNEA ON EXERT - Instructions Referrals: Elia Veronica MD [Primary Care Provider] - Disposition: AGAINST MEDICAL ADVICE - Home Medications Comprehensive Discharge Medication List: Ambulatory Orders Atorvastatin Calcium 40 mg PO HS 08/14/19 Iron 0 mg PO DAILY 08/14/19 Lisinopril/Hydrochlorothiazide [Lisinopril-Hctz 20-25 mg Tab] 1 each PO DAILY 08/14/19 Multivitamin [Multiple Vitamins] 1 each PO DAILY 08/14/19 Pioglitazone HCl/Metformin HCl [Actoplus Met 15 mg-850 mg Tab] 1 each PO BID 08/14/19 Sitagliptin Phosphate [Januvia] 100 mg PO DAILY 08/14/19 Problem List - Problems (1) Prophylactic measure Code(s): Z29.9 - ENCOUNTER FOR PROPHYLACTIC MEASURES, UNSPECIFIED (2) HTN (hypertension) Code(s): I10 - ESSENTIAL (PRIMARY) HYPERTENSION (3) HLD (hyperlipidemia) Code(s): E78.5 - HYPERLIPIDEMIA, UNSPECIFIED (4) PVD (peripheral vascular disease) Code(s): I73.9 - PERIPHERAL VASCULAR DISEASE, UNSPECIFIED (5) Person under investigation for COVID-19 Code(s): Z20.828 - CONTACT W AND EXPOSURE TO OTH VIRAL COMMUNICABLE DISEASES (6) ETOH abuse Code(s): F10.10 - ALCOHOL ABUSE, UNCOMPLICATED (7) Chest pain Code(s): R07.9 - CHEST PAIN, UNSPECIFIED (8) Diabetes Code(s): E11.9 - TYPE 2 DIABETES MELLITUS WITHOUT COMPLICATIONS This patient is new to me today: Yes Date on this admission: 08/15/19 Emergency Visit: Yes ED Registration Date: 08/14/19 Care time: The patient presented to the Emergency Department on the above date and was hospitalized for further evaluation of their emergent condition. Critical Care patient: No - Discharge Referral Referred to [facility] No
== END 2019-08-15 10:37 | disposition left against medical advice (07) | DRG 684 ==
LOC: JER 14:14 → JERBED 16:36 → OBSVTOIN 18:58
PROVIDERS: ADMIT Internal Medicine; ATTEND Nurse Practitioner Acute Care
DX: N17.9 Acute kidney failure, unspecified (principal); R07.89 Other chest pain; E78.5 Hyperlipidemia, unspecified; I73.9 Peripheral vascular disease, unspecified; I12.9 Hypertensive chronic kidney disease with stage 1 through stage 4 chronic kidney disease, or unspecified chronic kidney disease; N18.9 Chronic kidney disease, unspecified; E11.51 Type 2 diabetes mellitus with diabetic peripheral angiopathy without gangrene
CPT/HCPCS: 36415; 71045-TC-FY; 76775-TC; 76856-TC; 80048; 80053; 80061; 81003; 82550; 82565; 83036; 83721; 83735; 84100; 84300; 84443; 84484; 85025; 85610; 85730; 87389; 93005; 93010; 99285-25; G0378; J1644; U0003

== ENCOUNTER 2019-08-17 11:51 | Inpatient (IN) | payer OTHER ==
--- NOTE | 2019-08-17 12:11 | PDOC ---
History of Present Illness - General Chief Complaint: Chest Pain Stated Complaint: CHEST PAIN - History of Present Illness Initial Comments: 08/17/19 13:09 69yo M w/ h/o DM and EtOH use p/w CP x30min this morning at home. He was sitting at the breakfast table eating when a "tightness" started in the left mid/anterior axillary area. This lasted for 30min and was not associated w/ any other sx (no radiation, sweating, n/v, vision changes). CP resolved s pontaneously after 30min. He took one 81mg ASA at home and then came to the ED. This occurred one previous time, on 08/14/2019 while he was sitting at the same table. Reports recent increase in Metformin dose, which has been accompanied by vomiting and diarrhea. Denies leg edema, calf pain, sweating, changes in urination, changes in respiration, difficulty breathing. no recent travel. Reports recent increase in gasiness No allergies. takes metformin for DM. Last intake this AM PMH: DM PSH: remote finger and toe amputations. FHx: CVD and [place] in father (fatal, father in 70s) SHx: smoker - 50pack years, quit 10yrs ago. ETOH 4-5cocktails/day. Denies illicit drug use. Retired. ROS: General: denies recent illness, fever, cough. mood: depressed, feeling down. Neuro: denies vision changes, [place], tinnitus, dizziness, reports diabetic neuropathy in feet Pulm: ++SOB w/ exertion CV: intermittent palpitations Vascular: reports cold feet. ABD: denies pain, constipation : denies trouble starting/stopping urination, discharge Derm/skin: denies rashes MSK: denies weakness PE: General: well-appearing gentleman resting in bed, NAD Neuro: A/O x4, moves all extremities, 5+ strength in UE and LE Skin: warm, dry, pink CV: 2+ raidal pulses b/l, 1+ PT pulses b/l, no carotid bruit, 1/6 murmur w/ tachycardic and regular HR, regular rhythm. Lungs: Inspiratory wheeze ABD: nondistended, no tenderness, no CVA tenderness. Past History - Medical History Allergies/Adverse Reactions: Allergies Allergy/AdvReac Type Severity Reaction Status Date / Time No Known Allergies Allergy Verified 08/17/19 12:04 Home Medications: Ambulatory Orders Atorvastatin Calcium 40 mg PO HS 08/14/19 Iron 0 mg PO DAILY 08/14/19 Multivitamin [Multiple Vitamins] 1 each PO DAILY 08/14/19 Pioglitazone HCl/Metformin HCl [Actoplus Met 15 mg-850 mg Tab] 1 each PO BID 08/14/19 Sitagliptin Phosphate [Januvia] 100 mg PO DAILY 08/14/19 Amlodipine Besylate 5 mg PO DAILY #30 tablet 08/18/19 Aspirin [ASA -] 81 mg PO DAILY tab.chew 08/18/19 COPD: No Diabetes: Yes (niddm) HTN: Yes Hypercholesterolemia: Yes - Psycho-Social/Smoking History Smoking History: Former smoker Have you smoked in the past 12 months: No If you are a former smoker, when did you quit?: 6 years ago Information on smoking cessation initiated: No - Substance Abuse Hx (Audit-C & DAST Scrn) How often the patient has a drink containing alcohol: Monthly or less Number of drinks the patient has on a typical day: 1 or 2 How often the patient has six or more drinks on one occasion: Less than monthly Score: In Men: 4 or > Positive; In Women: 3 or > Positive: 2 Screen Result (Pos requires Nsg. Audit-10AR): Negative In the last yr the pt used illegal drug/Rx for NonMed reason: No Score: Yes response is considered Positive: 0 Screen Result (Positive result requires Nsg. DAST-10): Negative *Physical Exam - Vital Signs Last Vital Signs Temp Pulse Resp BP Pulse Ox 97.8 F 89 20 136/77 100 08/18/19 08:57 08/18/19 08:57 08/18/19 08:57 08/18/19 08:57 08/18/19 08:57 ED Treatment Course - LABORATORY CBC & Chemistry Diagram: 08/18/19 06:10 08/18/19 06:10 - ADDITIONAL ORDERS Additional order review: 08/17/19 13:38 Urine Culture - Final Urine - Urine Clean Catch Normal Urogenital Jenny 08/17/19 12:20 RBC 3.74 L MCV 100.3 H MCHC 32.5 RDW 13.2 MPV 8.7 Neutrophils % 72.0 D Lymphocytes % 18.2 D Monocytes % 8.1 Eosinophils % 0.4 Basophils % 1.3 - Medications Given in the ED: ED Medications Discontinued Medications Generic Name Dose Route Start Last Admin Trade Name Jean Paul PRN Reason Stop Dose Admin Amlodipine Besylate 5 mg 08/18/19 10:00 08/18/19 09:03 Norvasc - PO 5 mg DAILY ASHLEE Administration Aspirin 243 mg 08/17/19 14:05 08/17/19 14:17 Asa - PO 08/17/19 14:06 243 mg ONCE ONE Administration Aspirin 81 mg 08/18/19 10:00 08/18/19 09:03 Asa - PO 81 mg DAILY ASHLEE Administration Atorvastatin Calcium 40 mg 08/17/19 22:00 08/17/19 21:15 Lipitor - PO 40 mg HS ASHLEE Administration Heparin Sodium (Porcine) 5,000 unit 08/17/19 22:00 08/18/19 06:48 Heparin - SQ 5,000 unit TID ASHLEE Administration Lactated Ringer's 1,000 ml in 1,000 mls @ 1,000 mls/hr 08/17/19 12:46 08/17/19 13:30 Lactated Ringers Solution IV 08/17/19 13:45 1,000 mls/hr ONCE STA Administration Insulin Aspart 1 vial 08/17/19 16:30 08/18/19 11:28 Novolog Vial Sliding Scale - SQ 2 units ACHS ASHLEE Administration Protocol Multivitamins/Minerals/Vitamin C 1 tab 08/18/19 10:00 08/18/19 09:03 Tab-A-Vit - PO 1 tab DAILY ASHLEE Administration Thiamine HCl 200 mg 08/17/19 12:48 08/17/19 13:40 Vitamin B1 Injection - IVPB 08/17/19 12:49 200 mg ONCE ONE Administration Thiamine HCl 100 mg 08/18/19 10:00 08/18/19 09:03 Vitamin B1 - PO 100 mg DAILY ASHLEE Administration Discharge - Discharge Information Problems reviewed: Yes Clinical Impression/Diagnosis: Chest pain Qualifiers: Chest pain type: precordial pain Qualified Code(s): R07.2 - Precordial pain Condition: Improved Disposition: HOME - Follow up/Referral - Patient Discharge Instructions - Post Discharge Activity
[2019-08-17] MEDS ORDERED: LACTATED RINGERS SOLUTION 1,000 ML/1,000 ML INFUS.BAG IV STA (12:46)
[2019-08-17] MEDS ORDERED: THIAMINE HCL 200 MG/2 ML VIAL IVPB ONE (12:48)
[2019-08-17 12:59] LABS: BASO % 1.3 % (0-2.0); EOS % 0.4 % (0-4.5); HEMATOCRIT 37.5 % (35.4-49); HEMOGLOBIN 12.2 GM/dL (11.7-16.9); LYMPH % 18.2 % (8-40); MCH 32.6 pg (25.7-33.7); MCHC 32.5 g/dl (32.0-35.9); MEAN CELL VOLUME 100.3 fl (80-96); MEAN PLT VOLUME 8.7 fl (7.5-11.1); MONO % 8.1 % (3.8-10.2); PLATELET COUNT 255 K/MM3 (134-434); RBC 3.74 M/mm3 (4.00-5.60); RDW 13.2 % (11.9-15.9); WHITE BLOOD COUNT 7.3 K/mm3 (4.0-10.0)
[2019-08-17 13:12] LABS: INR 0.99 (0.83-1.09); PROTHROMBIN TIME (PATIENT) 11.7 SEC (9.7-13.0)
[2019-08-17 13:14] LABS: ACTIVATED PTT 33.4 SECONDS (25.2-36.5)
[2019-08-17] MEDS ORDERED: THIAMINE HCL 200 MG/2 ML VIAL ONE (13:16)
[2019-08-17 13:32] LABS: ALK PHOS 77 U/L (45-117); ANION GAP 10 MMOL/L (8-16); BILIRUBIN,TOTAL 0.7 mg/dL (0.2-1); BLOOD UREA NITROGEN 20.7 mg/dL (7-18); CALCIUM 9.1 mg/dL (8.5-10.1); CHLORIDE 104 mmol/L (98-107); CO2 20 mmol/L (21-32); CREATININE 1.8 mg/dL (0.55-1.3); GLUCOSE,RANDOM 227 mg/dL (74-106); LIPASE 130 U/L (73-393); N-TERMINAL BNP 37.8 pg/ml (5-125); POTASSIUM 5.4 mmol/L (3.5-5.1); SGOT/AST 23 U/L (15-37); SGPT/ALT 27 U/L (13-61); SODIUM 135 mmol/L (136-145); TOT PROT 6.9 g/dl (6.4-8.2)
--- NOTE | 2019-08-17 13:56 | PDOC ---
Attending Attestation - Resident Resident Name: Reginald Rosenbaum - ED Attending Attestation I have performed the following: I have examined & evaluated the patient, The case was reviewed & discussed with the resident, I agree w/resident's findings & plan - HPI HPI: 08/17/19 13:50 69-year-old male with hypertension, diabetes, high cholesterol AMA on 08/14 from chest pain admission prior to full cardiac evaluation presents now for repeat e pisode of left chest pain while eating. Pt reports progressive [place] over last few weeks, no cough/f/c/leg swelling. never had stress test/echo/cath. - Physicial Exam PE: 08/17/19 13:55 vss, HR normalized on my eval alert, nad no jaundice/pallor no jvd s1s2 rrr ctab abd benign no edema - Medical Decision Making 08/17/19 13:56 69y/o M with chest pain + risk factors for ACS. previously admitted with negative trop but incomplete cardiac eval. presents now with recurring chest pain. labs, ekg, cxr asa admit - pt willing to stay now to complete testing Heart Score/ECG Review #1 ECG reviewed & interpreted by me at: 12:16 General ECG Interpretation: Sinus Rhythm, Normal Rate (112), Normal Intervals (qtc 442), No acute ischemic changes Compared to previous ECG there are: No significant change (c/w 08/14/19) Discharge - Discharge Information Problems reviewed: Yes Clinical Impression/Diagnosis: Chest pain Qualifiers: Chest pain type: precordial pain Qualified Code(s): R07.2 - Precordial pain Condition: Fair - Follow up/Referral Referrals: Elia Veronica MD [Primary Care Provider] - - Patient Discharge Instructions - Post Discharge Activity
[2019-08-17] MEDS ORDERED: ASPIRIN 81 MG CHEWABLE TABLETS PO ONE (14:05)
[2019-08-17] MEDS ORDERED: ASPIRIN 325 MG ENTERIC COATED TABLET (FP) ONE (14:14)
--- NOTE | 2019-08-17 15:24 | PN ---
Teaching Attending Note Name of Resident: Rhea Sanchez ATTENDING PHYSICIAN STATEMENT I saw and evaluated the patient. I reviewed the resident's note and discussed the case with the resident. I agree with the resident's findings and plan as documented. SUBJECTIVE: 69 year old male with known history of DM hypertension, hypercholesteroloemia, ETOH use, who presents to the ED complaining of left sided chest pains while eating. He is progressively short of breath in the last few weeks. OBJECTIVE: Agree with PE as detailed by Dr Sanchez's note ASSESSMENT AND PLAN: 1. Chest pains - serial troponins - EKG - echocardiogram - monitor blood pressure - 2 gram sodium diet 2. DM 2 - check A1c - SSI, accuchecks 3. DVT prophylaxis
--- NOTE | 2019-08-17 15:46 | HP ---
CHIEF COMPLAINT: L sided chest pain PCP:Dr. Veronica HISTORY OF PRESENT ILLNESS: 69 yo M PMH HTN, DM, alcohol abuse BIBEMS to ED for chest pain. pt describes pain as L sided, as a pressure, rating 2/10, non radiating. he states it felt like " a gas bubble". he states that he had this pain for the first time on FridayAugust 13 when he first came to the hospital but left AMA since his pain" resolved" . he states that this episode lasted 30 minutes and resolved before he arrived in the ED. 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 he denies orthopnea. he denies palpitations. denies headache, dizziness, denies f/c/n/v. 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 Social History: Smoking:quit 10 y ago Alcohol:states he drinks 2 shots every other day . denies withdrawal sxs; denies seizure hx Drugs: denies FH: non contributory Allergies No Known Allergies Allergy (Verified 08/17/19 12:04) HOME MEDICATIONS: Home Medications Medication Instructions Recorded Atorvastatin Calcium 40 mg PO HS 08/14/19 Iron 0 mg PO DAILY 08/14/19 Lisinopril/Hydrochlorothiazide 1 each PO DAILY 08/14/19 [Lisinopril-Hctz 20-25 mg Tab] Multivitamin [Multiple Vitamins] 1 each PO DAILY 08/14/19 Pioglitazone HCl/Metformin HCl 1 each PO BID 08/14/19 [Actoplus Met 15 mg-850 mg Tab] Sitagliptin Phosphate [Januvia] 100 mg PO DAILY 08/14/19 REVIEW OF SYSTEMS CONSTITUTIONAL: Absent: fever, chills, diaphoresis, generalized weakness, malaise, loss of appetite, weight change HEENT: Absent: rhinorrhea, nasal congestion, throat pain, throat swelling, difficulty swallowing, mouth swelling, ear pain, eye pain, visual changes CARDIOVASCULAR: Absent: chest pain, syncope, palpitations, irregular heart rate, lightheadedness, peripheral edema RESPIRATORY: Absent: cough, shortness of breath, dyspnea with exertion, orthopnea, wheezing, stridor, hemoptysis GASTROINTESTINAL: Absent: abdominal pain, abdominal distension, nausea, vomiting, diarrhea, constipation, melena, hematochezia GENITOURINARY: Absent: dysuria, frequency, urgency, hesitancy, hematuria, flank pain, genital pain MUSCULOSKELETAL: Absent: myalgia, arthralgia, joint swelling, back pain, neck pain SKIN: Absent: rash, itching, pallor HEMATOLOGIC/IMMUNOLOGIC: Absent: easy bleeding, easy bruising, lymphadenopathy, frequent infections ENDOCRINE: Absent: unexplained weight gain, unexplained weight loss, heat intolerance, cold intolerance NEUROLOGIC: Absent: headache, focal weakness or paresthesias, dizziness, unsteady gait, seizure, mental status changes, bladder or bowel incontinence PHYSICAL EXAMINATION Vital Signs - 24 hr 08/17/19 08/17/19 12:04 12:10 Temperature 98.9 F Pulse Rate 116 H Respiratory 20 Rate Blood Pressure 161/62 O2 Sat by Pulse 100 100 Oximetry (%) GENERAL: Awake, alert, and fully oriented, in no acute distress. HEAD: Normal with no signs of trauma. EARS, NOSE, THROAT: Ears normal, nares patent, oropharynx clear without exudates. Moist mucous membranes. NECK: Normal range of motion, supple without lymphadenopathy, JVD, or masses. LUNGS: Breath sounds equal, clear to auscultation bilaterally. No wheezes, and no crackles. No accessory muscle use. HEART: Regular rate and rhythm, normal S1 and S2 without murmur, rub or gallop. ABDOMEN: Soft, nontender, not distended, normoactive bowel sounds, no guarding, no rebound, no masses. MUSCULOSKELETAL: Normal range of motion at all joints. No bony deformities or tenderness. No CVA tenderness. UPPER EXTREMITIES: 2+ pulses, warm, well-perfused. No cyanosis. No clubbing. No peripheral edema. LOWER EXTREMITIES: 2+ pulses, warm, well-perfused. No calf tenderness. No peripheral edema. NEUROLOGICAL: Cranial nerves II-XII intact. Normal speech. PSYCHIATRIC: Cooperative. Good eye contact. Appropriate mood and affect. SKIN: Warm, dry, normal turgor, no rashes or lesions noted, normal capillary refill. Laboratory Results - last 24 hr 08/17/19 08/17/19 08/17/19 12:20 12:20 12:20 WBC 7.3 RBC 3.74 L Hgb 12.2 Hct 37.5 MCV 100.3 H MCH 32.6 MCHC 32.5 RDW 13.2 Plt Count 255 MPV 8.7 Absolute Neuts (auto) 5.2 Neutrophils % 72.0 D Lymphocytes % 18.2 D Monocytes % 8.1 Eosinophils % 0.4 Basophils % 1.3 Nucleated RBC % 0 PT with INR 11.70 INR 0.99 PTT (Actin FS) 33.4 Sodium 135 L Potassium 5.4 H Chloride 104 Carbon Dioxide 20 L Anion Gap 10 BUN 20.7 H Creatinine 1.8 H Est GFR (CKD-EPI)AfAm 44.15 Est GFR (CKD-EPI)NonAf 38.10 Random Glucose 227 H Calcium 9.1 Total Bilirubin 0.7 AST 23 ALT 27 Alkaline Phosphatase 77 Creatine Kinase 78 Troponin I < 0.02 B-Natriuretic Peptide 37.8 Total Protein 6.9 Albumin 4.0 Lipase 130 ASSESSMENT/PLAN: 69 yo M PMH HTN, DM, alcohol abuse BIBEMS to ED for chest pain. Pt is admitted for r/o ACS. r/o ACS - rpt EKG unchanged - trop negative, rpt trop pending - Cardio consulted - Echo pending - will cont Asa , statin - CXR negative for acute pathology HTN - will use amlodipine instead of lisinopril 2/2 Kidney fxn DM -A1c 7.8 on 08/15/2019 - c/w ISS, BGM FAWAD vs CKD - Cr improved . 1.8 today improved from 2.1 on 08/14 - cont to monitor - avoid nephrotoxic agnts - will hold lisinopril, use amlodipine for HTN F/E/N - will rpt BMP to eval if hyperKalemia is true vs hemolysis - diabetic/ sodium controlled diet DVTppx: Hep SQ Dispo: tele ATTENDING PHYSICIAN STATEMENT I saw and evaluated the patient. I reviewed the resident's note and discussed the case with the resident. I agree with the resident's findings and plan as documented. SUBJECTIVE: OBJECTIVE: ASSESSMENT AND PLAN:
[2019-08-17] MEDS ORDERED: INSULIN SLIDING SCALE (NOVOLOG) 1 VIAL SQ SCH (16:30)
[2019-08-17 17:36] VITALS: BMI 25.7
[2019-08-17] MEDS: INSULIN SLIDING SCALE (NOVOLOG) 1 VIAL SQ SCH ×2 (17:37→21:25)
[2019-08-17] MEDS ORDERED: LORazepam 2 MG/ML SDV VIAL IVPUSH PRN (18:07)
[2019-08-17 19:17] LABS: URINE APPEARANCE CLEAR; URINE BILIRUBIN NEGATIVE (NEGATIVE); URINE COLOR YELLOW; URINE GLUCOSE (UA) NEGATIVE (NEGATIVE); URINE KETONE TRACE (NEGATIVE); URINE LEUK ESTERASE NEGATIVE (NEGATIVE); URINE NITRITE NEGATIVE (NEGATIVE); URINE PROTEIN NEGATIVE (NEGATIVE)
[2019-08-17 19:50] LABS: CALCIUM 8.9 mg/dL (8.5-10.1); CREATININE 1.7 mg/dL (0.55-1.3); POTASSIUM 4.8 mmol/L (3.5-5.1)
--- NOTE | 2019-08-17 20:32 | CONSULT ---
Consult Consult Specialty:: Nephrology Reason for Consultation:: fawad - History of Present Illness Chief Complaint: chest pain History of Present Illness: Pt is a 69 year old male with pmhx of dm, ht, and hld who presents to the ER with chest pain. Pain was left sided and lasted for a few minutes. He says it occurs when he eats. He currently denies pain. He was found to have elevated pharmacy informatics specialist. He signed out of the hospital on his last admission before I could evaluate him. His renal function has actually been improving. He denies dysuria or hematuria. He denies nsaid use. 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: Yes: Dementia Cardio/Vascular: Yes: HTN, Hyperlipdemia Endocrine: Yes: Diabetes Mellitus - Alcohol/Substance Use Hx Alcohol Use: No - Smoking History Smoking history: Former smoker Have you smoked in the past 12 months: No Aproximately how many cigarettes per day: 1 If you are a former smoker, when did you quit?: 10 years ago, 1ppd Home Medications - Allergies Allergies/Adverse Reactions: Allergies Allergy/AdvReac Type Severity Reaction Status Date / Time No Known Allergies Allergy Verified 08/17/19 12:04 - Home Medications Home Medications: Ambulatory Orders Atorvastatin Calcium 40 mg PO HS 08/14/19 Iron 0 mg PO DAILY 08/14/19 Lisinopril/Hydrochlorothiazide [Lisinopril-Hctz 20-25 mg Tab] 1 each PO DAILY 08/14/19 Multivitamin [Multiple Vitamins] 1 each PO DAILY 08/14/19 Pioglitazone HCl/Metformin HCl [Actoplus Met 15 mg-850 mg Tab] 1 each PO BID 08/14/19 Sitagliptin Phosphate [Januvia] 100 mg PO DAILY 08/14/19 Family Medical History Family History: Denies Review of Systems - Review of Systems Constitutional: reports: No Symptoms Eyes: reports: No Symptoms HENT: reports: No Symptoms Neck: reports: No Symptoms Cardiovascular: reports: Chest Pain Respiratory: reports: No Symptoms Gastrointestinal: reports: No Symptoms Genitourinary: reports: No Symptoms Musculoskeletal: reports: No Symptoms Integumentary: reports: No Symptoms Neurological: reports: No Symptoms Endocrine: reports: No Symptoms Hematology/Lymphatic: reports: No Symptoms Psychiatric: reports: No Symptoms Physical Exam Vital Signs: Vital Signs Temperature 97.7 F 08/17/19 19:46 Pulse Rate 79 07/07/20 19:46 Respiratory Rate 18 08/17/19 19:46 Blood Pressure 131/66 08/17/19 19:46 O2 Sat by Pulse Oximetry (%) 100 08/17/19 19:46 Constitutional: Yes: Calm Eyes: Yes: Conjunctiva Clear HENT: Yes: Atraumatic Neck: Yes: Supple Cardiovascular: Yes: S1, S2 Respiratory: Yes: CTA Bilaterally Gastrointestinal: Yes: Soft Renal/: Yes: WNL Musculoskeletal: Yes: WNL Edema: No Neurological: Yes: Oriented Psychiatric: Yes: Oriented Labs: CBC, BMP 08/17/19 12:20 08/17/19 18:50 Laboratory Tests 08/14/19 08/14/19 08/15/19 14:59 16:30 06:45 Sodium Potassium Carbon Dioxide Creatinine 2.5 H 2.4 H 2.1 H Urine Protein Urine Blood COVID-19 ([facility]) 08/17/19 08/17/19 08/17/19 12:20 12:30 13:38 Sodium 135 L Potassium 5.4 H Carbon Dioxide 20 L Creatinine 1.8 H Urine Protein Negative Urine Blood Negative COVID-19 ([facility]) Pending 08/17/19 18:50 Sodium 135 L Potassium 4.8 Carbon Dioxide 21 Creatinine 1.7 H Urine Protein Urine Blood COVID-19 ([facility]) Imaging - Results Chest X-ray: Report Reviewed Problem List - Problems (1) Chest pain Code(s): R07.9 - CHEST PAIN, UNSPECIFIED Qualifiers: Chest pain type: precordial pain Qualified Code(s): R07.2 - Precordial pain (2) FAWAD (acute kidney injury) Code(s): N17.9 - ACUTE KIDNEY FAILURE, UNSPECIFIED Assessment/Plan Current Medications Generic Name Dose Route Start Last Admin Trade Name Freq PRN Reason Stop Dose Admin Amlodipine Besylate 5 mg 08/18/19 10:00 Norvasc - PO DAILY ASHLEE Aspirin 81 mg 08/18/19 10:00 Asa - PO DAILY ASHLEE Atorvastatin Calcium 40 mg 08/17/19 22:00 Lipitor - PO HS ASHLEE Heparin Sodium (Porcine) 5,000 unit 08/17/19 22:00 Heparin - SQ TID ASHLEE Insulin Aspart 1 vial 08/17/19 16:30 08/17/19 17:37 Novolog Vial Sliding Scale - SQ Not Given ACHS [facility] Protocol Lorazepam 2 mg 08/17/19 18:07 Ativan Injection - IVPUSH PRN PRN WITHDRAWAL Multivitamins/Minerals/Vitamin C 1 tab 08/18/19 10:00 Tab-A-Vit - PO DAILY [facility] Thiamine HCl 100 mg 08/18/19 10:00 Vitamin B1 - PO DAILY [facility] Impression 1. FAWAD 2. HTN 3. DM 4. chest pain 5. hld Plan - reviewed outpt labs, he had a pharmacy informatics specialist of 1.3 in July with a gfr of about 54 - pharmacy informatics specialist is improving - would hold thiazide, he does not appears overloaded - monitor bp - lisinopril is on hold, evaluate daily - ua negative for blood or protein - check urine lytes and pharmacy informatics specialist - check renal ultrasound - discussed with
[2019-08-17] MEDS: HEPARIN NA (PORCINE) 5,000 UNITS/ML 1ML VIAL SQ SCH (21:15)
[2019-08-17] MEDS ORDERED: ATORVASTATIN CA 40 MG TABLET (FP) PO SCH (22:00)
[2019-08-18] MEDS: HEPARIN NA (PORCINE) 5,000 UNITS/ML 1ML VIAL SQ SCH (06:48)
[2019-08-18] MEDS: INSULIN SLIDING SCALE (NOVOLOG) 1 VIAL SQ SCH ×2 (06:48→11:28)
[2019-08-18 07:53] LABS: BASO % 1.2 % (0-2.0); EOS % 1.3 % (0-4.5); HEMATOCRIT 34.8 % (35.4-49); HEMOGLOBIN 11.3 GM/dL (11.7-16.9); LYMPH % 28.6 % (8-40); MCH 32.1 pg (25.7-33.7); MCHC 32.3 g/dl (32.0-35.9); MEAN CELL VOLUME 99.3 fl (80-96); MEAN PLT VOLUME 8.8 fl (7.5-11.1); MONO % 9.5 % (3.8-10.2); NEUT % 59.4 % (42.8-82.8); PLATELET COUNT 242 K/MM3 (134-434); RBC 3.51 M/mm3 (4.00-5.60); RDW 13.2 % (11.9-15.9); WHITE BLOOD COUNT 4.4 K/mm3 (4.0-10.0)
[2019-08-18 08:25] LABS: ALBUMIN 3.7 g/dl (3.4-5.0); BILIRUBIN,TOTAL 0.7 mg/dL (0.2-1); BLOOD UREA NITROGEN 19.2 mg/dL (7-18); CALCIUM 9.3 mg/dL (8.5-10.1); PHOSPHOROUS 3.6 mg/dL (2.5-4.9); POTASSIUM 5.3 mmol/L (3.5-5.1); TOT PROT 6.4 g/dl (6.4-8.2)
[2019-08-18 08:26] LABS: CREATININE 1.6 mg/dL (0.55-1.3)
[2019-08-18 08:59] VITALS: BP 136/77; PULSE 89; TEMP 97.8
[2019-08-18] MEDS ORDERED: amLODIPine BESYLATE 5 MG TABLET (FP) PO SCH (10:00)
[2019-08-18] MEDS ORDERED: THIAMINE HCL 100 MG TABLET (FP) PO SCH (10:00)
[2019-08-18] MEDS ORDERED: MULTIVITAMINS (DAILY MVI) TABLET (FP) PO SCH (10:00)
[2019-08-18] MEDS ORDERED: ASPIRIN 81 MG CHEWABLE TABLETS PO SCH (10:00)
--- NOTE | 2019-08-18 10:43 | EKG ---
Test Reason : Blood Pressure : / mmHG Vent. Rate : 112 BPM Atrial Rate : 112 BPM P-R Int : 184 ms QRS Dur : 076 ms QT Int : 324 ms P-R-T Axes : 057 -03 050 degrees QTc Int : 442 ms SINUS TACHYCARDIA SEPTAL INFARCT , AGE UNDETERMINED ABNORMAL ECG WHEN COMPARED WITH ECG OF 14-AUG-2019 14:17, NO SIGNIFICANT CHANGE WAS FOUND Confirmed by MD Diaz Daniel ([id number]) on 08/18/2019 10:43:05 AM Referred By: Confirmed By:Reginald Diaz MD
--- NOTE | 2019-08-18 10:43 | PN ---
Progress Note, Physician History of Present Illness: Chest pain has resolved, no events on telemetry. - Current Medication List Current Medications: Active Medications Amlodipine Besylate (Norvasc -) 5 mg PO DAILY [facility] Last Admin: 08/18/19 09:03 Dose: 5 mg Documented by: Aspirin (Asa -) 81 mg PO DAILY [facility] Last Admin: 08/18/19 09:03 Dose: 81 mg Documented by: Atorvastatin Calcium (Lipitor -) 40 mg PO HS [facility] Last Admin: 08/17/19 21:15 Dose: 40 mg Documented by: Heparin Sodium (Porcine) (Heparin -) 5,000 unit SQ TID [facility] Last Admin: 08/18/19 06:48 Dose: 5,000 unit Documented by: Insulin Aspart (Novolog Vial Sliding Scale -) 1 vial SQ [facility]; Protocol Last Admin: 08/18/19 06:48 Dose: Not Given Documented by: Lorazepam (Ativan Injection -) 2 mg IVPUSH PRN PRN PRN Reason: WITHDRAWAL Multivitamins/Minerals/Vitamin C (Tab-A-Vit -) 1 tab PO DAILY [facility] Last Admin: 08/18/19 09:03 Dose: 1 tab Documented by: Thiamine HCl (Vitamin B1 -) 100 mg PO DAILY [facility] Last Admin: 08/18/19 09:03 Dose: 100 mg Documented by: - Objective Vital Signs: Vital Signs Temperature 97.8 F 08/18/19 08:57 Pulse Rate 89 08/18/19 08:57 Respiratory Rate 20 08/18/19 08:57 Blood Pressure 136/77 08/18/19 08:57 O2 Sat by Pulse Oximetry (%) 100 08/18/19 08:57 Constitutional: Yes: No Distress, Calm, Thin Neck: Yes: Supple Cardiovascular: Yes: Regular Rate and Rhythm Respiratory: Yes: Regular, CTA Bilaterally Gastrointestinal: Yes: Normal Bowel Sounds, Soft Edema: No Labs: CBC, BMP 08/18/19 06:10 08/18/19 06:10 INR, PTT INR 0.99 (0.83-1.09) 08/17/19 12:20 - ....Imaging EKG: Report Reviewed (Tele: NSR) Assessment/Plan Problem List - Problems (1) FAWAD (acute kidney injury) Code(s): N17.9 - ACUTE KIDNEY FAILURE, UNSPECIFIED (2) Chest pain Code(s): R07.9 - CHEST PAIN, UNSPECIFIED (3) HLD (hyperlipidemia) Code(s): E78.5 - HYPERLIPIDEMIA, UNSPECIFIED (4) HTN (hypertension) Code(s): I10 - ESSENTIAL (PRIMARY) HYPERTENSION (5) PVD (peripheral vascular disease) Code(s): I73.9 - PERIPHERAL VASCULAR DISEASE, UNSPECIFIED Assessment/Plan 1. Chest pain syndrome ruled out for IA 2. HTN 3. Type 2 DM 4. Hypercholesterolemia 5. PAD 6. Acute on chronic kidney injury 2/2 Zesteretic improving (last Cr in 2016 was 1.3) PLAN: 1. Hold ACEI pending renal recovery. Continue Norvasc 5 qd 2. Atorvastatin 40 mg QHS and ASA 81 mg QD 3. Echocardiography to assess LV/RV and valvular function, may be performed as outpatient 4. Renal input appreciated and monitor renal function 5. D/c planning may continue CV evaluation as outpatient
--- NOTE | 2019-08-18 11:57 | ECHO ---
Name: BEE, BECKIE Exam:Adult Echocardiogram Study Date: 08/18/2019 10:52 AM Age: 69 yrs Reason For Study: CP R/O CHF MMode/2D Measurements & Calculations IVSd: 1.1 cm Ao root diam: 3.0 cm LVIDd: 3.4 cm LA dimension: 3.3 cm LVIDs: 2.5 cm LVPWd: 1.4 cm LVPWs: 1.6 cm EDV(Teich): 46.5 ml ESV(Teich): 22.7 ml LVOT diam: 1.8 cm LAV (MOD-bp): 44.0 ml RV S Jesse: 12.0 cm/sec Doppler Measurements & Calculations MV E max jesse: 83.4 cm/sec Ao V2 max: 132.9 cm/sec MV A max jesse: 88.4 cm/sec Ao max P.1 mmHg MV E/A: 0.94 BETZY(V,D): 2.0 cm2 MV dec time: 0.16 sec LV V1 max P.5 mmHg PA V2 max: 81.4 cm/sec LV V1 max: 106.6 cm/sec PA max P.7 mmHg PI end-d jesse: 109.7 cm/sec Med Peak E' Jesse: 6.6 cm/sec Med E/e': 12.6 Lat Peak E' Jesse: 8.8 cm/sec Lat E/e': 9.5 Left Ventricle The left ventricular size, thickness and function are normal. Ejection Fraction = 51%. Right Ventricle The right ventricle is normal in size and function. Atria Normal left and right atrial size and function. Mitral Valve The mitral valve is grossly normal. Tricuspid Valve The tricuspid valve is normal in structure and function. Aortic Valve The aortic valve is normal in structure and function. Pulmonic Valve The pulmonic valve is normal in structure and function. Great Vessels The aortic root is normal size. Pericardium/Pleura There is no pericardial effusion. Interpretation Summary The right ventricle is normal in size and function. Normal left and right atrial size and function. The mitral valve is grossly normal. The tricuspid valve is normal in structure and function. The aortic valve is normal in structure and function. The pulmonic valve is normal in structure and function. Ejection Fraction = 51%. MD Reginald Diaz 08/18/2019 11:56 AM
--- NOTE | 2019-08-18 13:45 | DS ---
Physical Exam: SUBJECTIVE: Patient seen and examined. chest pain resolved. OBJECTIVE: 69 yo M PMH HTN, DM, alcohol abuse BIBEMS to ED for chest pain. pt describes pain as L sided, as a pressure, rating 2/10, non radiating. he states it felt like " a gas bubble". he states that he had this pain for the first time on FridayAugust 13 when he first came to the hospital but left AMA since his pain" resolved" . he states that this episode lasted 30 minutes and resolved before he arrived in the ED. 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 he denies orthopnea. he denies palpitations. denies headache, dizziness, denies f/c/n/v. Vital Signs Period Temp Pulse Resp BP Sys/Stovall Pulse Ox Last 24 Hr 97.6 F-98.3 F 78-89 13-20 131-149/64-77 100-100 PHYSICAL EXAM GENERAL: Awake, alert, and fully oriented, in no acute distress. HEAD: Normal with no signs of trauma. EARS, NOSE, THROAT: Ears normal, nares patent, oropharynx clear without exudates. Moist mucous membranes. NECK: Normal range of motion, supple without lymphadenopathy, JVD, or masses. LUNGS: Breath sounds equal, clear to auscultation bilaterally. No wheezes, and no crackles. No accessory muscle use. HEART: Regular rate and rhythm, normal S1 and S2 without murmur, rub or gallop. ABDOMEN: Soft, nontender, not distended, normoactive bowel sounds, no guarding, no rebound, no masses. MUSCULOSKELETAL: Normal range of motion at all joints. No bony deformities or tenderness. No CVA tenderness. UPPER EXTREMITIES: 2+ pulses, warm, well-perfused. No cyanosis. No clubbing. No peripheral edema. LOWER EXTREMITIES: 2+ pulses, warm, well-perfused. No calf tenderness. No peripheral edema. NEUROLOGICAL: Cranial nerves II-XII intact. Normal speech. PSYCHIATRIC: Cooperative. Good eye contact. Appropriate mood and affect. SKIN: Warm, dry, normal turgor, no rashes or lesions noted, normal capillary refill. LABS Laboratory Results - last 24 hr 08/17/19 08/17/19 08/17/19 13:38 18:50 21:10 WBC RBC Hgb Hct MCV MCH MCHC RDW Plt Count MPV Absolute Neuts (auto) Neutrophils % Lymphocytes % Monocytes % Eosinophils % Basophils % Nucleated RBC % Sodium 135 L Potassium 4.8 Chloride 106 Carbon Dioxide 21 Anion Gap 9 BUN 21.0 H Creatinine 1.7 H Est GFR (CKD-EPI)AfAm 47.31 Est GFR (CKD-EPI)NonAf 40.82 POC Glucometer Random Glucose 186 H Hemoglobin A1c % Calcium 8.9 Phosphorus Magnesium Total Bilirubin AST ALT Alkaline Phosphatase Troponin I < 0.02 Total Protein Albumin Vitamin B12 Urine Color Yellow Urine Appearance Clear Urine pH 5.0 Ur Specific [place] 1.018 Urine Protein Negative Urine Glucose (UA) Negative Urine Ketones Trace H Urine Blood Negative Urine Nitrite Negative Urine Bilirubin Negative Urine Urobilinogen 1.0 Ur Leukocyte Esterase Negative Ur Random Creatinine Ur Random Sodium Ur Random Potassium Ur Random Chloride 08/17/19 08/17/19 08/18/19 21:23 21:30 06:10 WBC 4.4 RBC 3.51 L Hgb 11.3 L Hct 34.8 L MCV 99.3 H MCH 32.1 MCHC 32.3 RDW 13.2 Plt Count 242 MPV 8.8 Absolute Neuts (auto) 2.6 Neutrophils % 59.4 Lymphocytes % 28.6 D Monocytes % 9.5 Eosinophils % 1.3 D Basophils % 1.2 Nucleated RBC % 0 Sodium Potassium Chloride Carbon Dioxide Anion Gap BUN Creatinine Est GFR (CKD-EPI)AfAm Est GFR (CKD-EPI)NonAf POC Glucometer 157 Random Glucose Hemoglobin A1c % Calcium Phosphorus Magnesium Total Bilirubin AST ALT Alkaline Phosphatase Troponin I Total Protein Albumin Vitamin B12 Urine Color Urine Appearance Urine pH Ur Specific [place] Urine Protein Urine Glucose (UA) Urine Ketones Urine Blood Urine Nitrite Urine Bilirubin Urine Urobilinogen Ur Leukocyte Esterase Ur Random Creatinine 117.0 Ur Random Sodium 53 Ur Random Potassium 17.0 L Ur Random Chloride 68 L 08/18/19 08/18/19 08/18/19 06:10 06:10 06:10 WBC RBC Hgb Hct MCV MCH MCHC RDW Plt Count MPV Absolute Neuts (auto) Neutrophils % Lymphocytes % Monocytes % Eosinophils % Basophils % Nucleated RBC % Sodium 138 Potassium 5.3 H Chloride 108 H Carbon Dioxide 21 Anion Gap 9 BUN 19.2 H Creatinine 1.6 H Est GFR (CKD-EPI)AfAm 50.91 Est GFR (CKD-EPI)NonAf 43.93 POC Glucometer Random Glucose 138 H Hemoglobin A1c % 6.7 H Calcium 9.3 Phosphorus 3.6 Magnesium 2.0 Total Bilirubin 0.7 AST 21 ALT 27 Alkaline Phosphatase 67 Troponin I Total Protein 6.4 Albumin 3.7 Vitamin B12 652 Urine Color Urine Appearance Urine pH Ur Specific [place] Urine Protein Urine Glucose (UA) Urine Ketones Urine Blood Urine Nitrite Urine Bilirubin Urine Urobilinogen Ur Leukocyte Esterase Ur Random Creatinine Ur Random Sodium Ur Random Potassium Ur Random Chloride 08/18/19 08/18/19 06:45 11:26 WBC RBC Hgb Hct MCV MCH MCHC RDW Plt Count MPV Absolute Neuts (auto) Neutrophils % Lymphocytes % Monocytes % Eosinophils % Basophils % Nucleated RBC % Sodium Potassium Chloride Carbon Dioxide Anion Gap BUN Creatinine Est GFR (CKD-EPI)AfAm Est GFR (CKD-EPI)NonAf POC Glucometer 143 168 Random Glucose Hemoglobin A1c % Calcium Phosphorus Magnesium Total Bilirubin AST ALT Alkaline Phosphatase Troponin I Total Protein Albumin Vitamin B12 Urine Color Urine Appearance Urine pH Ur Specific [place] Urine Protein Urine Glucose (UA) Urine Ketones Urine Blood Urine Nitrite Urine Bilirubin Urine Urobilinogen Ur Leukocyte Esterase Ur Random Creatinine Ur Random Sodium Ur Random Potassium Ur Random Chloride HOSPITAL COURSE: Date of Admission:08/17/19 Date of Discharge: 08/18/19 chest pain, resolved per cardiology, stable for d/c home Echocardiography to assess LV/RV and valvular function, may be performed as outpatient D/c planning may continue CV evaluation as outpatient Minutes to complete discharge: 45 Discharge Summary Problems reviewed: Yes Reason For Visit: DIABETES MELLITUS,CHRONIC KIDNEY DISEASE,CHEST JOSEFA Current Active Problems Chest pain (Acute) Condition: Improved - Instructions Diet, Activity, Other Instructions: Mr. Aqiuno You were admitted for chest pain. Your cardiac workup was negative. Please follow up with Dr. Queen (product scientist) Medications: STOP taking the Lisinopril/Hydrocholothiazide. START taking Amlodopine 5mg You will need a renal ultrasound as an outpatient. Please follow up with Dr. Pan. Follow ups: Please follow up with your primary care doctor for repeat blood work. Your kidney function was elevated and needs close monitoring. Thank you for allowing us to care for you. Referrals: Elia Veronica MD [Primary Care Provider] - Werner Queen MD [Staff Physician] - 1 Week Yvrose Pan MD [Staff Physician] - Disposition: HOME - Home Medications Comprehensive Discharge Medication List: Ambulatory Orders Atorvastatin Calcium 40 mg PO HS 08/14/19 Iron 0 mg PO DAILY 08/14/19 Multivitamin [Multiple Vitamins] 1 each PO DAILY 08/14/19 Pioglitazone HCl/Metformin HCl [Actoplus Met 15 mg-850 mg Tab] 1 each PO BID 08/14/19 Sitagliptin Phosphate [Januvia] 100 mg PO DAILY 08/14/19 Amlodipine Besylate 5 mg PO DAILY #30 tablet 08/18/19 Aspirin [ASA -] 81 mg PO DAILY tab.chew 08/18/19 This patient is new to me today: Yes Date on this admission: 09/24/19 Emergency Visit: Yes ED Registration Date: 08/17/19 Care time: The patient presented to the Emergency Department on the above date and was hospitalized for further evaluation of their emergent condition. Critical Care patient: No - Discharge Referral Referred to [facility] Med [facility] No
== END 2019-08-18 14:03 | disposition home or self-care (01) | DRG 684 ==
LOC: SUPCPDRO 11:51 → JER 11:51 → JERBED 14:02 → J4W 16:16
PROVIDERS: ADMIT Internal Medicine; ATTEND Nurse Practitioner Family
DX: N17.9 Acute kidney failure, unspecified (principal); E87.5 Hyperkalemia; E78.5 Hyperlipidemia, unspecified; I12.9 Hypertensive chronic kidney disease with stage 1 through stage 4 chronic kidney disease, or unspecified chronic kidney disease; F03.90 Unspecified dementia, unspecified severity, without behavioral disturbance, psychotic disturbance, mood disturbance, and anxiety; E11.51 Type 2 diabetes mellitus with diabetic peripheral angiopathy without gangrene; E11.22 Type 2 diabetes mellitus with diabetic chronic kidney disease; R07.89 Other chest pain; T46.4X5A Adverse effect of angiotensin-converting-enzyme inhibitors, initial encounter; F10.10 Alcohol abuse, uncomplicated; N18.9 Chronic kidney disease, unspecified; Z89.421 Acquired absence of other right toe(s); Z89.022 Acquired absence of left finger(s)
CPT/HCPCS: 36415; 71046-TC-FY; 80048; 80053; 81003; 82436; 82550; 82565; 82607; 82962; 83036; 83690; 83735; 83880; 84100; 84133; 84300; 84484; 85025; 85610; 85730; 87086; 93005; 93010; 93306-TC; 99285-25; J1644; U0003

== ENCOUNTER 2021-10-31 16:16 | Emergency (ER) | payer OTHER ==
[2021-10-31 16:51] VITALS: BP 132/69; RESP 18; TEMP 98.4; BMI 25.0
[2021-10-31 19:01] LABS: BASO % 0.6 % (0-2.0); EOS % 0.1 % (0-4.5); HEMATOCRIT 39.3 % (35.4-49); HEMOGLOBIN 13.1 GM/dL (11.7-16.9); MCH 32.1 pg (25.7-33.7); MCHC 33.4 g/dl (32.0-35.9); MEAN PLT VOLUME 8.9 fl (7.5-11.1); NEUT % 76.3 % (42.8-82.8); PLATELET COUNT 262 10^3/uL (134-434); RBC 4.09 M/mm3 (4.00-5.60); RDW 12.7 % (11.9-15.9); WHITE BLOOD COUNT 8.5 K/mm3 (4.0-10.0)
[2021-10-31 19:22] LABS: ALBUMIN 3.8 g/dl (3.4-5.0)
[2021-10-31 19:23] LABS: BLOOD UREA NITROGEN 27.2 mg/dL (7-18)
[2021-10-31 19:24] LABS: CALCIUM 9.6 mg/dL (8.5-10.1)
[2021-10-31 19:26] LABS: CREATININE 1.7 mg/dL (0.55-1.3)
[2021-10-31 19:27] LABS: BILIRUBIN,TOTAL 0.6 mg/dL (0.2-1); TOT PROT 7.1 g/dl (6.4-8.2)
[2021-10-31 19:33] LABS: N-TERMINAL BNP 85.2 pg/ml (5-125)
[2021-10-31 19:57] VITALS: PULSE 73
== END 2021-10-31 19:59 | disposition home or self-care (01) ==
LOC: JERFT 16:16
DX: R07.9 Chest pain, unspecified (principal)
CPT/HCPCS: 36415; 71046-TC-FY; 80053; 83880; 84484; 85025; 93005; 93010; 99285-25

== ENCOUNTER 2021-11-16 05:19 | Emergency (ER) | payer OTHER ==
[2021-11-16 05:44] VITALS: BMI 23.6
[2021-11-16] MEDS ORDERED: GABAPENTIN 300 MG CAPSULE PO ONE (05:53)
[2021-11-16] MEDS ORDERED: LACTATED RINGERS SOLUTION 1000 ML INFUS.BAG IV ONE (06:01)
[2021-11-16] MEDS ORDERED: GABAPENTIN 300 MG CAPSULE ONE (06:13)
[2021-11-16 06:45] VITALS: BP 128/77; PULSE 84; RESP 18; TEMP 97.9
[2021-11-16 06:53] LABS: BASO % 1.1 % (0-2.0); EOS % 0.8 % (0-4.5); HEMATOCRIT 42.8 % (35.4-49); HEMOGLOBIN 13.9 GM/dL (11.7-16.9); LYMPH % 18.5 % (8-40); MCH 31.2 pg (25.7-33.7); MCHC 32.4 g/dl (32.0-35.9); MEAN CELL VOLUME 96.2 fl (80-96); MEAN PLT VOLUME 9.1 fl (7.5-11.1); MONO % 5.8 % (3.8-10.2); NEUT % 73.8 % (42.8-82.8); PLATELET COUNT 252 10^3/uL (134-434); RBC 4.45 M/mm3 (4.00-5.60); RDW 13.2 % (11.9-15.9); WHITE BLOOD COUNT 6.8 K/mm3 (4.0-10.0)
[2021-11-16 07:46] LABS: CALCIUM 9.3 mg/dL (8.5-10.1)
[2021-11-16 07:47] LABS: BLOOD UREA NITROGEN 24.3 mg/dL (7-18)
[2021-11-16 07:50] LABS: CREATININE 1.5 mg/dL (0.55-1.3)
[2021-11-16 07:52] LABS: BILIRUBIN,TOTAL 0.7 mg/dL (0.2-1); TOT PROT 7.3 g/dl (6.4-8.2)
== END 2021-11-16 08:19 | disposition home or self-care (01) ==
LOC: JER 05:19
DX: E13.49 Other specified diabetes mellitus with other diabetic neurological complication (principal)
CPT/HCPCS: 36415; 80053; 82962; 85025; 99283-25

== ENCOUNTER 2022-02-21 19:57 | Inpatient (IN) | payer OTHER ==
[2022-02-21 20:29] VITALS: BMI 21.2
[2022-02-21 21:21] LABS: BASO % 1.5 % (0-2.0); HEMATOCRIT 44.6 % (35.4-49); HEMOGLOBIN 14.6 GM/dL (11.7-16.9); MCH 31.5 pg (25.7-33.7); MCHC 32.8 g/dl (32.0-35.9); MEAN CELL VOLUME 96.2 fl (80-96); MEAN PLT VOLUME 8.4 fl (7.5-11.1); MONO % 8.6 % (3.8-10.2); NEUT % 78.9 % (42.8-82.8); PLATELET COUNT 218 10^3/uL (134-434); RBC 4.64 M/mm3 (4.00-5.60); RDW 13.5 % (11.9-15.9); WHITE BLOOD COUNT 9.7 K/mm3 (4.0-10.0)
[2022-02-21 21:31] LABS: INR 1.05 (0.83-1.09); PROTHROMBIN TIME (PATIENT) 12.1 SEC (9.7-13.0)
[2022-02-21] MEDS ORDERED: SODIUM CHLORIDE 0.9% 500 ML INFUS.BAG IV ONE (21:39)
[2022-02-21 21:40] LABS: CALCIUM 9.4 mg/dL (8.5-10.1)
[2022-02-21 21:41] LABS: ALBUMIN 3.8 g/dl (3.4-5.0); BLOOD UREA NITROGEN 37.8 mg/dL (7-18)
[2022-02-21 21:43] LABS: CREATININE 2.1 mg/dL (0.55-1.3)
[2022-02-21 21:45] LABS: BILIRUBIN,TOTAL 0.5 mg/dL (0.2-1); TOT PROT 7.2 g/dl (6.4-8.2)
[2022-02-21] MEDS ORDERED: LACTATED RINGERS SOLUTION 1000 ML INFUS.BAG IV ONE (23:08)
[2022-02-22 03:33] LABS: URINE APPEARANCE CLEAR; URINE BILIRUBIN NEGATIVE (NEGATIVE); URINE COLOR YELLOW; URINE GLUCOSE (UA) 3+ (NEGATIVE); URINE KETONE 1+ (NEGATIVE); URINE LEUK ESTERASE NEGATIVE (NEGATIVE); URINE NITRITE NEGATIVE (NEGATIVE); URINE PROTEIN NEGATIVE (NEGATIVE); URINE UROBILINOGEN 0.2 mg/dL (0.2-1.0)
[2022-02-22] MEDS: GABAPENTIN 300 MG CAPSULE PO SCH ×3 (05:27→21:48)
[2022-02-22] MEDS: LACTATED RINGERS SOLUTION 1,000 ML/1,000 ML INFUS.BAG IV SCH (07:50)
[2022-02-22] MEDS ORDERED: REMDESIVIR 200 MG in SODIUM CHLORIDE 250 ML IVPB ONE (08:00)
[2022-02-22 08:50] LABS: BASO % 0.5 % (0-2.0); HEMATOCRIT 39.3 % (35.4-49); LYMPH % 19.4 % (8-40); MCH 31.4 pg (25.7-33.7); MEAN CELL VOLUME 95.3 fl (80-96); MEAN PLT VOLUME 8.8 fl (7.5-11.1); MONO % 11.2 % (3.8-10.2); NEUT % 68.9 % (42.8-82.8); PLATELET COUNT 219 10^3/uL (134-434); RBC 4.13 M/mm3 (4.00-5.60); RDW 13.3 % (11.9-15.9); WHITE BLOOD COUNT 5.8 K/mm3 (4.0-10.0)
[2022-02-22 09:22] LABS: CALCIUM 8.8 mg/dL (8.5-10.1)
[2022-02-22 09:23] LABS: ALBUMIN 3.4 g/dl (3.4-5.0); BLOOD UREA NITROGEN 36.8 mg/dL (7-18); MAGNESIUM 2.2 mg/dL (1.8-2.4)
[2022-02-22 09:26] LABS: CREATININE 1.7 mg/dL (0.55-1.3); PHOSPHOROUS 4.8 mg/dL (2.5-4.9)
[2022-02-22 09:27] LABS: BILIRUBIN,TOTAL 0.4 mg/dL (0.2-1); TOT PROT 6.6 g/dl (6.4-8.2)
[2022-02-22] MEDS: INSULIN SLIDING SCALE (NOVOLOG) 1 VIAL SQ SCH ×3 (09:50→16:26)
[2022-02-22] MEDS ORDERED: ENOXAPARIN NA (PORCINE) 40 MG/0.4 ML DISP.SYRIN SQ SCH (10:00)
[2022-02-22] MEDS ORDERED: amLODIPine BESYLATE 5 MG TABLET (FP) ONE (10:19)
[2022-02-22] MEDS ORDERED: sitaGLIPtin PHOSPHATE 50 MG TABLET ONE (10:19)
[2022-02-22] MEDS ORDERED: ENOXAPARIN NA (PORCINE) 30 MG/0.3 ML DISP.SYRIN SQ ONE (10:20)
[2022-02-22] MEDS ORDERED: GABAPENTIN 300 MG CAPSULE ONE (10:41)
[2022-02-22] MEDS: ENOXAPARIN NA (PORCINE) 40 MG/0.4 ML DISP.SYRIN SQ SCH (10:51)
[2022-02-22] MEDS: amLODIPine BESYLATE 5 MG TABLET (FP) PO SCH (10:51)
[2022-02-22] MEDS ORDERED: PIOGLITAZONE HCL 15 MG TABLET PO SCH (16:30)
[2022-02-23] MEDS: ATORVASTATIN CA 40 MG TABLET (FP) PO SCH (00:33)
[2022-02-23] MEDS: INSULIN SLIDING SCALE (NOVOLOG) 1 VIAL SQ SCH ×4 (00:53→17:02)
[2022-02-23] MEDS: GABAPENTIN 300 MG CAPSULE PO SCH ×2 (06:36→11:02)
[2022-02-23 08:20] LABS: BASO % 0.8 % (0-2.0); EOS % 0.1 % (0-4.5); HEMATOCRIT 40.5 % (35.4-49); HEMOGLOBIN 13.4 GM/dL (11.7-16.9); LYMPH % 33.3 % (8-40); MCH 31.4 pg (25.7-33.7); MCHC 33.1 g/dl (32.0-35.9); MEAN CELL VOLUME 94.7 fl (80-96); MONO % 11.4 % (3.8-10.2); NEUT % 54.4 % (42.8-82.8); PLATELET COUNT 234 10^3/uL (134-434); RBC 4.28 M/mm3 (4.00-5.60); RDW 13.6 % (11.9-15.9); WHITE BLOOD COUNT 3.4 K/mm3 (4.0-10.0)
[2022-02-23 09:07] LABS: ALBUMIN 3.9 g/dl (3.4-5.0); BILIRUBIN,TOTAL 0.4 mg/dL (0.2-1); BLOOD UREA NITROGEN 37.4 mg/dL (7-18); CALCIUM 9.2 mg/dL (8.5-10.1); CREATININE 1.5 mg/dL (0.55-1.3); TOT PROT 7.2 g/dl (6.4-8.2)
[2022-02-23] MEDS: ENOXAPARIN NA (PORCINE) 40 MG/0.4 ML DISP.SYRIN SQ SCH (11:02)
[2022-02-23] MEDS: amLODIPine BESYLATE 5 MG TABLET (FP) PO SCH (11:02)
[2022-02-24] MEDS: GABAPENTIN 300 MG CAPSULE PO SCH ×4 (05:52→12:53)
[2022-02-24] MEDS: ATORVASTATIN CA 40 MG TABLET (FP) PO SCH (05:53)
[2022-02-24] MEDS: INSULIN SLIDING SCALE (NOVOLOG) 1 VIAL SQ SCH ×3 (05:53→12:50)
[2022-02-24] MEDS: LACTATED RINGERS SOLUTION 1,000 ML/1,000 ML INFUS.BAG IV SCH (06:41)
[2022-02-24] MEDS: amLODIPine BESYLATE 5 MG TABLET (FP) PO SCH (10:29)
[2022-02-24] MEDS: ENOXAPARIN NA (PORCINE) 40 MG/0.4 ML DISP.SYRIN SQ SCH (10:44)
[2022-02-24 15:41] VITALS: BP 141/73; PULSE 111; RESP 22; TEMP 98.4
== END 2022-02-24 17:09 | disposition home or self-care (01) | DRG 179 ==
LOC: JER 19:57 → JERBED 21:46 → J4W 02-22 23:36
PROVIDERS: ADMIT Internal Medicine; ATTEND Internal Medicine
PROC: XW033E5 Introduction of Remdesivir Anti-infective into Peripheral Vein, Percutaneous Approach, New Technology Group 5 (ICD-10-PCS; principal; 2022-02-21)
DX: U07.1 COVID-19 (principal); R55 Syncope and collapse; E11.65 Type 2 diabetes mellitus with hyperglycemia; F03.90 Unspecified dementia, unspecified severity, without behavioral disturbance, psychotic disturbance, mood disturbance, and anxiety; N18.9 Chronic kidney disease, unspecified; E86.0 Dehydration; E78.5 Hyperlipidemia, unspecified; I10 Essential (primary) hypertension
CPT/HCPCS: 0241U-QW; 36415; 70450-TC; 71045-TC-FY; 72125-TC; 80053; 80061; 81003; 82010; 82550; 82570; 82962; 83036; 83735; 84100; 84156; 84443; 84484; 85025; 85610; 85730; 87086; 93005; 93010; 93880-TC; 99285-25; C9399

== ENCOUNTER 2022-03-12 02:58 | Inpatient (IN) | payer OTHER ==
[2022-03-12] MEDS ORDERED: PANTOPRAZOLE SODIUM 40 MG VIAL IVPUSH ONE (03:55)
[2022-03-12] MEDS ORDERED: ONDANSETRON 4 MG/2 ML VIAL ONE ×2 (04:08→06:58)
[2022-03-12] MEDS ORDERED: PANTOPRAZOLE SODIUM 40 MG VIAL ONE (04:16)
[2022-03-12] MEDS ORDERED: SODIUM CHLORIDE 0.9% 500 ML INFUS.BAG IV ONE ×2 (04:55→05:11)
[2022-03-12 05:46] LABS: INR 1.02 (0.83-1.09); PROTHROMBIN TIME (PATIENT) 11.7 SEC (9.7-13.0)
[2022-03-12 05:51] LABS: CHLORIDE 83 mmol/L (98-107); SODIUM 130 mmol/L (136-145)
[2022-03-12 05:53] LABS: CALCIUM 10.3 mg/dL (8.5-10.1)
[2022-03-12 05:54] LABS: ALBUMIN 4.6 g/dl (3.4-5.0); ANION GAP 29 MMOL/L (8-16); BLOOD UREA NITROGEN 83.6 mg/dL (7-18); CO2 18 mmol/L (21-32); GLUCOSE,RANDOM 382 mg/dL (74-106)
[2022-03-12 05:57] LABS: CREATININE 2.8 mg/dL (0.55-1.3); HEMATOCRIT 54.9 % (35.4-49); MCH 31.1 pg (25.7-33.7); MCHC 32.8 g/dl (32.0-35.9); MEAN CELL VOLUME 94.6 fl (80-96); MEAN PLT VOLUME 10.6 fl (7.5-11.1); PLATELET COUNT 338 10^3/uL (134-434); RDW 13.1 % (11.9-15.9); SGOT/AST 17 U/L (15-37); SGPT/ALT 23 U/L (13-61); WHITE BLOOD COUNT 12.1 K/mm3 (4.0-10.0)
[2022-03-12 05:58] LABS: BILIRUBIN,TOTAL 1.4 mg/dL (0.2-1); TOT PROT 9.5 g/dl (6.4-8.2)
[2022-03-12 06:00] LABS: ALK PHOS 104 U/L (45-117)
[2022-03-12 06:19] LABS: LACTIC ACID 6.1 mmol/L (0.4-2.0)
[2022-03-12] MEDS ORDERED: ONDANSETRON 4 MG/2 ML VIAL IVPUSH ONE ×3 (06:50→06:55)
[2022-03-12 07:15] LABS: VENOUS BASE EXCESS -12.8 mmol/L (-2-2); VENOUS O2 SATURATION 56.7 % (70-80); VENOUS PCO2 33.7 mmHg (38-52); VENOUS PH 7.222 (7.310-7.410)
[2022-03-12 07:33] LABS: CHLORIDE 84 mmol/L (98-107); SODIUM 132 mmol/L (136-145)
[2022-03-12 07:35] LABS: ANION GAP 31 MMOL/L (8-16); BLOOD UREA NITROGEN 87.6 mg/dL (7-18); CO2 17 mmol/L (21-32)
[2022-03-12 07:38] LABS: CREATININE 2.9 mg/dL (0.55-1.3)
[2022-03-12 08:25] LABS: GLUCOSE,RANDOM 461 mg/dL (74-106); LACTIC ACID 7.1 mmol/L (0.4-2.0)
[2022-03-12] MEDS ORDERED: LACTATED RINGERS SOLUTION 1000 ML INFUS.BAG IV ONE (08:29)
[2022-03-12] MEDS ORDERED: POTASSIUM CHLORIDE 20 MEQ PREMIX IVPB 100 ML IVPB ONE (08:35)
[2022-03-12] MEDS ORDERED: INSULIN REGULAR HUMAN 100 UNITS/ML *VIAL IVPUSH ONE (08:36)
[2022-03-12] MEDS ORDERED: INSULIN DRIP - PLEASE ORDER UNDER SETS NR ONE (08:50)
[2022-03-12 08:57] LABS: ANISOCYTOSIS 0; HELMET CELLS 0; HOWELL-JOLLY BODIES 0; MACROCYTOSIS 0; OVALOCYTE 0; ROULEAU 0; SICKELED CELLS 0; TARGET CELLS 0; TEAR DROP CELLS 0; TOXIC GRANULATION 0
[2022-03-12] MEDS ORDERED: KCL 10 MEQ IVPB 20 MEQ/200 ML INFUS.BAG IVPB ONE (09:04)
[2022-03-12] MEDS ORDERED: INSULIN REGULAR HUMAN 100 UNITS/ML *VIAL ONE (09:06)
[2022-03-12] MEDS ORDERED: INSULIN REGULAR 100 UNITS in SODIUM CHLORIDE 99 ML IVPB SCH (09:45)
[2022-03-12] MEDS ORDERED: SODIUM CHLORIDE 0.45%/POT 20 MEQ/1,000 ML INFUS.BAG IV SCH (10:15)
[2022-03-12] MEDS ORDERED: MUPIROCIN 2% TOPICAL OINTMENT FOR DECOLONIZATION NS SCH (10:15)
[2022-03-12 10:44] LABS: URINE APPEARANCE CLEAR; URINE BILIRUBIN NEGATIVE (NEGATIVE); URINE COLOR YELLOW; URINE GLUCOSE (UA) 3+ (NEGATIVE); URINE KETONE 1+ (NEGATIVE); URINE LEUK ESTERASE NEGATIVE (NEGATIVE); URINE NITRITE NEGATIVE (NEGATIVE); URINE PROTEIN NEGATIVE (NEGATIVE); URINE UROBILINOGEN 0.2 mg/dL (0.2-1.0)
[2022-03-12 11:03] LABS: CALCIUM 9.2 mg/dL (8.5-10.1)
[2022-03-12 11:04] LABS: BLOOD UREA NITROGEN 88.7 mg/dL (7-18); MAGNESIUM 3.1 mg/dL (1.8-2.4)
[2022-03-12 11:07] LABS: CREATININE 2.7 mg/dL (0.55-1.3); PHOSPHOROUS 4.1 mg/dL (2.5-4.9)
[2022-03-12] MEDS ORDERED: ACETAMINOPHEN 1000 MG/100 ML BAG IVPB PRN (11:45)
[2022-03-12 11:56] LABS: LACTIC ACID 6.2 mmol/L (0.4-2.0)
[2022-03-12] MEDS ORDERED: ONDANSETRON 4 MG/2 ML VIAL IVPUSH PRN (12:00)
[2022-03-12] MEDS ORDERED: D5-1/2NS+20 MEQ KCL - 20 MEQ/1,000 ML INFUS.BAG IV SCH ×2 (13:30→20:34)
[2022-03-12] MEDS: HEPARIN NA (PORCINE) 5,000 UNITS/ML 1ML VIAL SQ SCH ×2 (14:38→21:08)
[2022-03-12 16:30] LABS: CALCIUM 8.9 mg/dL (8.5-10.1)
[2022-03-12 16:31] LABS: BLOOD UREA NITROGEN 82.8 mg/dL (7-18)
[2022-03-12 16:34] LABS: CREATININE 2.6 mg/dL (0.55-1.3)
[2022-03-12 17:13] LABS: LACTIC ACID 2.4 mmol/L (0.4-2.0)
[2022-03-12 19:26] LABS: CALCIUM 8.9 mg/dL (8.5-10.1)
[2022-03-12 19:27] LABS: BLOOD UREA NITROGEN 78.8 mg/dL (7-18)
[2022-03-12 19:30] LABS: CREATININE 2.6 mg/dL (0.55-1.3)
[2022-03-12] MEDS ORDERED: ONDANSETRON 4 MG/2 ML VIAL IVPUSH STA (20:35)
[2022-03-12] MEDS: ATORVASTATIN CA 40 MG TABLET (FP) PO SCH (21:09)
[2022-03-12] MEDS ORDERED: INSULIN (LEVEMIR) 100 UNITS/ML UNITS SQ SCH (22:00)
[2022-03-12] MEDS ORDERED: CHLORHEXIDINE GLUCONATE 4% CLEANSER FOR DECOLONIZATION TP SCH (22:00)
[2022-03-13] MEDS: HEPARIN NA (PORCINE) 5,000 UNITS/ML 1ML VIAL SQ SCH ×4 (05:38→22:32)
[2022-03-13] MEDS ORDERED: DEXTROSE 50%-WATER - 25 GM/50 ML VIAL IVPUSH STA (06:48)
[2022-03-13] MEDS ORDERED: DEXTROSE 50%-WATER 25 GM/50 ML DISP.SYRIN ONE (06:53)
[2022-03-13 09:38] LABS: HEMATOCRIT 41.5 % (35.4-49); MCH 31.2 pg (25.7-33.7); MCHC 33.8 g/dl (32.0-35.9); MEAN CELL VOLUME 92.3 fl (80-96); MEAN PLT VOLUME 8.7 fl (7.5-11.1); PLATELET COUNT 184 10^3/uL (134-434); RDW 13.2 % (11.9-15.9); WHITE BLOOD COUNT 12.6 K/mm3 (4.0-10.0)
[2022-03-13] MEDS ORDERED: amLODIPine BESYLATE 2.5 MG TABLET (FP) PO SCH (10:00)
[2022-03-13] MEDS ORDERED: PANTOPRAZOLE SODIUM 40 MG VIAL IVPUSH SCH (10:00)
[2022-03-13 10:04] LABS: CALCIUM 9.1 mg/dL (8.5-10.1)
[2022-03-13 10:05] LABS: BLOOD UREA NITROGEN 60.9 mg/dL (7-18); MAGNESIUM 2.7 mg/dL (1.8-2.4)
[2022-03-13 10:08] LABS: CREATININE 2.1 mg/dL (0.55-1.3)
[2022-03-13 10:37] LABS: ALBUMIN 3.4 g/dl (3.4-5.0); TOT PROT 6.4 g/dl (6.4-8.2)
[2022-03-13] MEDS: INSULIN SLIDING SCALE (NOVOLOG) 1 VIAL SQ SCH ×2 (11:11→16:28)
[2022-03-13] MEDS: SODIUM CHLORIDE 1,000 ML IV SCH (11:44)
[2022-03-13] MEDS: ATORVASTATIN CA 40 MG TABLET (FP) PO SCH (22:32)
[2022-03-14] MEDS: HEPARIN NA (PORCINE) 5,000 UNITS/ML 1ML VIAL SQ SCH ×4 (06:36→22:19)
[2022-03-14] MEDS: INSULIN SLIDING SCALE (NOVOLOG) 1 VIAL SQ SCH ×3 (06:41→17:07)
[2022-03-14] MEDS: amLODIPine BESYLATE 2.5 MG TABLET (FP) PO SCH (10:13)
[2022-03-14 10:32] LABS: BASO % 0.6 % (0-2.0); EOS % 0.7 % (0-4.5); HEMATOCRIT 37.4 % (35.4-49); HEMOGLOBIN 12.5 GM/dL (11.7-16.9); LYMPH % 20.9 % (8-40); MCHC 33.3 g/dl (32.0-35.9); MEAN CELL VOLUME 93.1 fl (80-96); MEAN PLT VOLUME 9.5 fl (7.5-11.1); MONO % 7.7 % (3.8-10.2); NEUT % 70.1 % (42.8-82.8); PLATELET COUNT 182 10^3/uL (134-434); RBC 4.01 M/mm3 (4.00-5.60); RDW 13.2 % (11.9-15.9); WHITE BLOOD COUNT 7.8 K/mm3 (4.0-10.0)
[2022-03-14 10:35] LABS: CALCIUM 8.8 mg/dL (8.5-10.1)
[2022-03-14 10:36] LABS: ALBUMIN 3.1 g/dl (3.4-5.0); BLOOD UREA NITROGEN 38.7 mg/dL (7-18); MAGNESIUM 2.3 mg/dL (1.8-2.4)
[2022-03-14 10:39] LABS: CREATININE 1.5 mg/dL (0.55-1.3); PHOSPHOROUS 2.4 mg/dL (2.5-4.9)
[2022-03-14 10:40] LABS: BILIRUBIN,TOTAL 1.3 mg/dL (0.2-1); TOT PROT 5.8 g/dl (6.4-8.2)
[2022-03-14] MEDS: SODIUM CHLORIDE 1,000 ML IV SCH ×2 (11:45→18:34)
[2022-03-14 14:42] VITALS: BMI 20.8
[2022-03-14] MEDS: ATORVASTATIN CA 40 MG TABLET (FP) PO SCH ×2 (21:59→22:16)
[2022-03-15] MEDS: HEPARIN NA (PORCINE) 5,000 UNITS/ML 1ML VIAL SQ SCH ×3 (07:24→21:08)
[2022-03-15] MEDS: INSULIN SLIDING SCALE (NOVOLOG) 1 VIAL SQ SCH ×3 (07:24→18:55)
[2022-03-15 09:16] LABS: BASO % 0.8 % (0-2.0); EOS % 1.4 % (0-4.5); HEMOGLOBIN 11.8 GM/dL (11.7-16.9); LYMPH % 22.9 % (8-40); MCH 31.6 pg (25.7-33.7); MCHC 33.6 g/dl (32.0-35.9); MEAN CELL VOLUME 93.9 fl (80-96); MONO % 7.6 % (3.8-10.2); NEUT % 67.3 % (42.8-82.8); PLATELET COUNT 151 10^3/uL (134-434); RBC 3.73 M/mm3 (4.00-5.60); RDW 13.6 % (11.9-15.9); WHITE BLOOD COUNT 7.1 K/mm3 (4.0-10.0)
[2022-03-15] MEDS: amLODIPine BESYLATE 2.5 MG TABLET (FP) PO SCH (09:30)
[2022-03-15] MEDS: MULTIVITAMINS (DAILY MVI) TABLET (FP) PO SCH (09:30)
[2022-03-15 09:32] LABS: BLOOD UREA NITROGEN 25.6 mg/dL (7-18); CALCIUM 8.6 mg/dL (8.5-10.1); MAGNESIUM 1.9 mg/dL (1.8-2.4)
[2022-03-15 09:33] LABS: ALBUMIN 3.1 g/dl (3.4-5.0)
[2022-03-15 09:36] LABS: CREATININE 1.3 mg/dL (0.55-1.3)
[2022-03-15 09:37] LABS: BILIRUBIN,TOTAL 1.2 mg/dL (0.2-1); TOT PROT 5.8 g/dl (6.4-8.2)
[2022-03-15] MEDS ORDERED: INSULIN (NOVOLOG) ASPART 100 UNITS/ML 10ML VIAL ONE (15:02)
[2022-03-15] MEDS: SODIUM CHLORIDE 1,000 ML IV SCH (15:16)
[2022-03-15] MEDS: ATORVASTATIN CA 40 MG TABLET (FP) PO SCH (21:08)
[2022-03-16] MEDS: INSULIN SLIDING SCALE (NOVOLOG) 1 VIAL SQ SCH ×3 (06:09→17:50)
[2022-03-16] MEDS: HEPARIN NA (PORCINE) 5,000 UNITS/ML 1ML VIAL SQ SCH ×3 (06:15→21:08)
[2022-03-16] MEDS: amLODIPine BESYLATE 2.5 MG TABLET (FP) PO SCH (09:55)
[2022-03-16] MEDS: MULTIVITAMINS (DAILY MVI) TABLET (FP) PO SCH (09:55)
[2022-03-16 10:42] LABS: BASO % 1.1 % (0-2.0); EOS % 1.4 % (0-4.5); HEMATOCRIT 35.6 % (35.4-49); HEMOGLOBIN 12.1 GM/dL (11.7-16.9); LYMPH % 21.3 % (8-40); MCH 31.6 pg (25.7-33.7); MCHC 33.9 g/dl (32.0-35.9); MEAN CELL VOLUME 93.3 fl (80-96); MEAN PLT VOLUME 9.5 fl (7.5-11.1); MONO % 6.9 % (3.8-10.2); NEUT % 69.3 % (42.8-82.8); PLATELET COUNT 156 10^3/uL (134-434); RBC 3.82 M/mm3 (4.00-5.60); RDW 13.2 % (11.9-15.9); WHITE BLOOD COUNT 7.3 K/mm3 (4.0-10.0)
[2022-03-16 11:19] LABS: ALBUMIN 3.2 g/dl (3.4-5.0); CALCIUM 8.7 mg/dL (8.5-10.1); MAGNESIUM 1.6 mg/dL (1.8-2.4)
[2022-03-16 11:20] LABS: BLOOD UREA NITROGEN 15.3 mg/dL (7-18)
[2022-03-16 11:22] LABS: CREATININE 1.1 mg/dL (0.55-1.3)
[2022-03-16 11:24] LABS: BILIRUBIN,TOTAL 1.1 mg/dL (0.2-1)
[2022-03-16] MEDS ORDERED: MAGNESIUM OXIDE 400 MG TABLET (FP) PO ONE (13:24)
[2022-03-16] MEDS: ATORVASTATIN CA 40 MG TABLET (FP) PO SCH (21:08)
[2022-03-17] MEDS: HEPARIN NA (PORCINE) 5,000 UNITS/ML 1ML VIAL SQ SCH ×3 (06:05→21:19)
[2022-03-17] MEDS: INSULIN SLIDING SCALE (NOVOLOG) 1 VIAL SQ SCH ×3 (06:10→17:04)
[2022-03-17] MEDS: MULTIVITAMINS (DAILY MVI) TABLET (FP) PO SCH (09:41)
[2022-03-17] MEDS: amLODIPine BESYLATE 2.5 MG TABLET (FP) PO SCH (09:41)
[2022-03-17 10:18] LABS: BASO % 0.9 % (0-2.0); EOS % 2.2 % (0-4.5); HEMATOCRIT 38.3 % (35.4-49); HEMOGLOBIN 12.8 GM/dL (11.7-16.9); LYMPH % 32.4 % (8-40); MCH 31.3 pg (25.7-33.7); MCHC 33.5 g/dl (32.0-35.9); MEAN CELL VOLUME 93.6 fl (80-96); MEAN PLT VOLUME 9.4 fl (7.5-11.1); NEUT % 58.5 % (42.8-82.8); PLATELET COUNT 166 10^3/uL (134-434); RBC 4.09 M/mm3 (4.00-5.60); RDW 13.5 % (11.9-15.9); WHITE BLOOD COUNT 7.1 K/mm3 (4.0-10.0)
[2022-03-17 10:41] LABS: ALBUMIN 3.2 g/dl (3.4-5.0); CALCIUM 8.9 mg/dL (8.5-10.1)
[2022-03-17 10:42] LABS: BLOOD UREA NITROGEN 15.6 mg/dL (7-18); MAGNESIUM 1.7 mg/dL (1.8-2.4)
[2022-03-17 10:44] LABS: CREATININE 1.2 mg/dL (0.55-1.3)
[2022-03-17 10:46] LABS: BILIRUBIN,TOTAL 1.1 mg/dL (0.2-1)
[2022-03-17] MEDS ORDERED: ACETAMINOPHEN 325 MG TABLET (FP) PO PRN (11:13)
[2022-03-17] MEDS ORDERED: INSULIN (NOVOLOG) ASPART 100 UNITS/ML 10ML VIAL ONE (11:27)
[2022-03-17] MEDS ORDERED: MAGNESIUM OXIDE 400 MG TABLET (FP) PO ONE (13:06)
[2022-03-17] MEDS: ATORVASTATIN CA 40 MG TABLET (FP) PO SCH (21:19)
[2022-03-17 23:21] VITALS: BP 115/57
[2022-03-18] MEDS: HEPARIN NA (PORCINE) 5,000 UNITS/ML 1ML VIAL SQ SCH ×2 (07:06→14:18)
[2022-03-18] MEDS: INSULIN SLIDING SCALE (NOVOLOG) 1 VIAL SQ SCH ×2 (07:37→11:47)
[2022-03-18] MEDS: amLODIPine BESYLATE 2.5 MG TABLET (FP) PO SCH (10:04)
[2022-03-18] MEDS: MULTIVITAMINS (DAILY MVI) TABLET (FP) PO SCH (10:04)
[2022-03-18 15:10] VITALS: PULSE 89; RESP 19; TEMP 97.8
== END 2022-03-18 15:26 | DRG 637 ==
LOC: JER 02:58 → JERBED 09:16 → JICU 11:11 → J8W 03-13 21:02
PROVIDERS: ADMIT Internal Medicine; ATTEND Nurse Practitioner Family
DX: E11.10 Type 2 diabetes mellitus with ketoacidosis without coma (principal); U07.1 COVID-19; N17.9 Acute kidney failure, unspecified; E78.5 Hyperlipidemia, unspecified; F03.90 Unspecified dementia, unspecified severity, without behavioral disturbance, psychotic disturbance, mood disturbance, and anxiety; I12.9 Hypertensive chronic kidney disease with stage 1 through stage 4 chronic kidney disease, or unspecified chronic kidney disease; E11.22 Type 2 diabetes mellitus with diabetic chronic kidney disease; N18.9 Chronic kidney disease, unspecified; R00.0 Tachycardia, unspecified; E87.5 Hyperkalemia; E86.9 Volume depletion, unspecified; D72.829 Elevated white blood cell count, unspecified; R11.0 Nausea; Z79.84 Long term (current) use of oral hypoglycemic drugs
CPT/HCPCS: 0241U-QW; 36415; 71045-TC-FY; 74176-TC; 80048; 80053; 80307; 81003; 82010; 82272; 82553; 82570; 82803; 82962; 83036; 83605; 83735; 84100; 84300; 84439; 84443; 84484; 84540; 85025; 85027; 85610; 85730; 86850; 86900; 86901; 87040; 87086; 93005; 93010; 93971; 97116-GP; 97162-GP; 99291; 99292; J1644; J3480

== ENCOUNTER 2022-05-17 06:03 | Emergency (ER) | payer OTHER ==
[2022-05-17 06:28] VITALS: TEMP 98.3; BMI 23.1
[2022-05-17 08:43] LABS: INR 0.98 (0.83-1.09); PROTHROMBIN TIME (PATIENT) 11.4 SEC (9.7-13.0)
[2022-05-17 08:46] LABS: ACTIVATED PTT 33.1 SECONDS (25.2-36.5)
[2022-05-17 08:50] LABS: BASO % 1.1 % (0-2.0); EOS % 0.5 % (0-4.5); HEMATOCRIT 38.8 % (35.4-49); HEMOGLOBIN 13.3 GM/dL (11.7-16.9); LYMPH % 18.2 % (8-40); MCH 32.6 pg (25.7-33.7); MCHC 34.1 g/dl (32.0-35.9); MEAN CELL VOLUME 95.5 fl (80-96); MEAN PLT VOLUME 8.7 fl (7.5-11.1); MONO % 7.2 % (3.8-10.2); PLATELET COUNT 270 10^3/uL (134-434); RBC 4.07 M/mm3 (4.00-5.60); RDW 14.3 % (11.9-15.9); WHITE BLOOD COUNT 6.2 K/mm3 (4.0-10.0)
[2022-05-17 08:57] LABS: CALCIUM 9.3 mg/dL (8.5-10.1)
[2022-05-17 08:58] LABS: BLOOD UREA NITROGEN 25.3 mg/dL (7-18); MAGNESIUM 2.3 mg/dL (1.8-2.4)
[2022-05-17 09:01] LABS: CREATININE 1.4 mg/dL (0.55-1.3)
[2022-05-17 09:03] LABS: BILIRUBIN,TOTAL 0.8 mg/dL (0.2-1); TOT PROT 7.5 g/dl (6.4-8.2)
[2022-05-17] MEDS ORDERED: ALBUTEROL SO4 HFA INHALER IH ONE ×2 (09:08→09:55)
[2022-05-17] MEDS ORDERED: SODIUM ZIRCONIUM CYCLOSILICATE (LOKELMA) 5 GM PACKET PO ONE (09:09)
[2022-05-17] MEDS ORDERED: INSULIN REGULAR HUMAN 100 UNITS/ML *VIAL SQ ONE (09:20)
[2022-05-17] MEDS ORDERED: CALCIUM GLUCONATE 10% - 1,000 MG/10 ML VIAL IVPUSH ONE (09:20)
[2022-05-17] MEDS ORDERED: CALCIUM GLUCONATE 10% - 1,000 MG/10 ML VIAL ONE (09:31)
[2022-05-17] MEDS ORDERED: SODIUM ZIRCONIUM CYCLOSILICATE (LOKELMA) 5 GM PACKET ONE (09:31)
[2022-05-17 10:24] LABS: PH,URINE 5.5 (5.0-8.0); URINE APPEARANCE CLEAR; URINE BILIRUBIN NEGATIVE (NEGATIVE); URINE COLOR YELLOW; URINE GLUCOSE (UA) 3+ (NEGATIVE); URINE KETONE NEGATIVE (NEGATIVE); URINE LEUK ESTERASE NEGATIVE (NEGATIVE); URINE NITRITE NEGATIVE (NEGATIVE); URINE PROTEIN NEGATIVE (NEGATIVE); URINE UROBILINOGEN 0.2 mg/dL (0.2-1.0)
[2022-05-17 10:57] VITALS: BP 162/125; PULSE 80; RESP 20
== END 2022-05-17 12:37 | disposition home or self-care (01) ==
LOC: JER 06:03
PROC: 3E023GC Introduction of Other Therapeutic Substance into Muscle, Percutaneous Approach (ICD-10-PCS; principal; 2022-05-17)
PROC: 3E033GC Introduction of Other Therapeutic Substance into Peripheral Vein, Percutaneous Approach (ICD-10-PCS; principal; 2022-05-17)
PROC: 3E0F7GC Introduction of Other Therapeutic Substance into Respiratory Tract, Via Natural or Artificial Opening (ICD-10-PCS; 2022-05-17)
DX: R26.89 Other abnormalities of gait and mobility (principal)
CPT/HCPCS: 36415; 70450-TC; 71045-TC-FY; 80053; 81003; 82550; 82962; 83735; 84132; 84484; 85025; 85610; 85730; 87086; 93005; 93010; 99285-25